=== PATIENT | female | born 1985 | race American Indian/Alaskan Native ===

== ENCOUNTER 2017-05-10 16:31 | Emergency (ER) | payer MEDICAID ==
[2017-05-10] MEDS ORDERED: TORADOL IM ONE (22:49)
[2017-05-10] MEDS ORDERED: TYLENOL PO ONE (22:51)
[2017-05-10] MEDS ORDERED: BOOSTRIX IM ONE (22:52)
[2017-05-10] MEDS ORDERED: MARCAINE-EPI/PF 0.5%-1:200,000 INFILTRATI ONE (22:55)
--- NOTE | 2017-05-10 22:55 | Emergency Department Report ---
- General Chief complaint: Skin/Abscess/Foreign Body Stated complaint: ABCESS Time Seen by Provider: 05/10/17 22:25 Source: patient Mode of arrival: Ambulatory Limitations: No Limitations - History of Present Illness Initial comments: This is a 31-year-old female nontoxic, well nourished in appearance, no acute signs of distress presented ED complaining of right-sided perinuem boil x4 days. Patient states pain is a 10 out of 10 that is described as sharp. Patient denies any pus or drainage. Denies vaginal discharge, fever, chills, headache, stiff neck, nausea, vomiting, pus or drainage. Patient denies any allergies or past medical history. Patient states she is not up-to-date with tetanus. MD complaint: abscess/boil -: Gradual, days(s) (3) Tetanus Up to Date: no Location: buttocks (right sided perineum) Severity: moderate Severity scale (0 -10): 10 Quality: sharp Consistency: constant Improves with: none Worsens with: none Associated symptoms: denies other symptoms Treatments Prior to Arrival: none - Related Data Previous Rx's Medication Instructions Recorded Last Taken Type Acetaminophen/Codeine 1 tab PO Q6H PRN #14 tab 11/16/14 Unknown Rx [Acetaminophen-Codeine #3 TAB] Sulfamethoxazole/Trimethoprim 1 each PO BID #14 tablet 11/16/14 Unknown Rx [Bactrim Ds] Clindamycin [Clindamycin CAP] 450 mg PO Q8HR 7 Days 05/10/17 Unknown Rx Ibuprofen [Motrin 600 MG tab] 600 mg PO Q8H PRN #30 tablet 05/10/17 Unknown Rx traMADol [Ultram] 50 mg PO Q4HR PRN #12 tablet 05/10/17 Unknown Rx Allergies Allergy/AdvReac Type Severity Reaction Status Date / Time No Known Allergies Allergy Verified 11/16/14 20:51 Abscess Boil HPI - HPI Chief Complaint: Skin/Abscess/Foreign Body Stated Complaint: ABCESS Time Seen by Provider: 05/10/17 22:25 Home Medications: Previous Rx's Medication Instructions Recorded Last Taken Type Acetaminophen/Codeine 1 tab PO Q6H PRN #14 tab 11/16/14 Unknown Rx [Acetaminophen-Codeine #3 TAB] Sulfamethoxazole/Trimethoprim 1 each PO BID #14 tablet 11/16/14 Unknown Rx [Bactrim Ds] Clindamycin [Clindamycin CAP] 450 mg PO Q8HR 7 Days 05/10/17 Unknown Rx Ibuprofen [Motrin 600 MG tab] 600 mg PO Q8H PRN #30 tablet 05/10/17 Unknown Rx traMADol [Ultram] 50 mg PO Q4HR PRN #12 tablet 05/10/17 Unknown Rx Allergies/Adverse Reactions: Allergies Allergy/AdvReac Type Severity Reaction Status Date / Time No Known Allergies Allergy Verified 11/16/14 20:51 ED Review of Systems ROS: Stated complaint: ABCESS Other details as noted in HPI Constitutional: denies: chills, fever Eyes: denies: eye pain, eye discharge, vision change ENT: denies: ear pain, throat pain Respiratory: denies: cough, shortness of breath, wheezing Cardiovascular: denies: chest pain, palpitations Endocrine: no symptoms reported Gastrointestinal: denies: abdominal pain, nausea, diarrhea Genitourinary: denies: urgency, dysuria, discharge Musculoskeletal: denies: back pain, joint swelling, arthralgia Skin: denies: rash, lesions Neurological: denies: headache, weakness, paresthesias Psychiatric: denies: anxiety, depression Hematological/Lymphatic: denies: easy bleeding, easy bruising ED Past Medical Hx - Past Medical History Previous Medical History?: Yes Hx Headaches / Migraines: Yes - Surgical History Past Surgical History?: Yes Additional Surgical History: x1 - Social History Smoking Status: Current Every Day Smoker Substance Use Type: Alcohol, Marijuana, Non Opiate Pain - Medications Home Medications: Home Medications Medication Instructions Recorded Confirmed Last Taken Type Acetaminophen/Codeine 1 tab PO Q6H PRN #14 tab 11/16/14 Unknown Rx [Acetaminophen-Codeine #3 TAB] Sulfamethoxazole/Trimethoprim 1 each PO BID #14 tablet 11/16/14 Unknown Rx [Bactrim Ds] Clindamycin [Clindamycin CAP] 450 mg PO Q8HR 7 Days 05/10/17 Unknown Rx Ibuprofen [Motrin 600 MG tab] 600 mg PO Q8H PRN #30 tablet 05/10/17 Unknown Rx traMADol [Ultram] 50 mg PO Q4HR PRN #12 tablet 05/10/17 Unknown Rx ED Physical Exam - General Limitations: No Limitations General appearance: alert, in no apparent distress - Head Head exam: Present: atraumatic, normocephalic, normal inspection - Eye Eye exam: Present: normal appearance, PERRL, EOMI. Absent: scleral icterus, conjunctival injection, nystagmus, periorbital swelling, periorbital tenderness Pupils: Present: normal accommodation - ENT ENT exam: Present: normal exam, normal orophraynx, mucous membranes moist, TM's normal bilaterally, normal external ear exam - Neck Neck exam: Present: normal inspection, full ROM. Absent: tenderness, meningismus, lymphadenopathy, thyromegaly - Respiratory Respiratory exam: Present: normal lung sounds bilaterally. Absent: respiratory distress, wheezes, rales, rhonchi, stridor, chest wall tenderness, accessory muscle use, decreased breath sounds, prolonged expiratory - Cardiovascular Cardiovascular Exam: Present: regular rate, normal rhythm. Absent: systolic murmur, diastolic murmur, rubs, gallop - GI/Abdominal GI/Abdominal exam: Present: soft, normal bowel sounds - Rectal Rectal exam: Present: deferred, normal rectal tone, other (residential support worker present during exam. There is an abscess to right perineum region. No pus or drainage. Positive fluctance present. Tender to touch. ). Absent: decreased rectal tone, hemorrhoids, mass - Extremities Exam Extremities exam: Present: normal inspection, full ROM, normal capillary refill. Absent: tenderness, pedal edema, joint swelling, calf tenderness - Back Exam Back exam: Present: normal inspection, full ROM. Absent: tenderness, CVA tenderness (R), CVA tenderness (L), muscle spasm, paraspinal tenderness, vertebral tenderness, rash noted - Neurological Exam Neurological exam: Present: alert, oriented X3, CN II-XII intact, normal gait, reflexes normal - Psychiatric Psychiatric exam: Present: normal affect, normal mood - Skin Skin exam: Present: warm, dry, intact, normal color. Absent: rash ED Course Vital Signs 05/10/17 17:54 Temperature 99.7 F H Pulse Rate 95 H Respiratory 20 Rate Blood Pressure 118/73 O2 Sat by Pulse 100 Oximetry - Reevaluation(s) Reevaluation #1: 05/10/17 22:58 Patient is able speak full sentence with no signs of distress. - I & D Right Buttocks Type of Procedure: Complex Site: right perineum Blade Size: 11 I & D Procedure: betadine prep, sterile drapes applied, sterile dressing applied Progress: Under sterile field, I used Betadine to cleanse the area. I then used 0.5% Marcaine with 1-200,000 lidocaine with 25-gauge 5/8 needle to inject area for anesthetic purposes. Total volume injected 3 mL. I then used an 11 blade to make a 1 cm incision. About 4 mL's of purulent drainage has been noted. I then used a hemostat to break the abscess formation. I then used sterile 0.9% normal saline flush to flush the wound with total volume of 40 mL used. I then put a 1/4 iodoform packing to the incision. A sterile 4 x 4 with tape has been applied as dressing. Bleeding is under control. Patient tolerated the procedure well with no signs of distress noted. ED Medical Decision Making - Medical Decision Making ED course; this is a 31-year-old female that presents with a abscess to the right perineum Patient was examined myself. An incision and drainage has been performed and patient's daughter well with no signs of distress. A iodoform packing has been inserted and patient was instructed to return in 2 days for packing removal. Patient also received clindamycin at the time of discharge. Patient was instructed to follow up with her primary care doctor in 3-5 days or if symptoms such as fever, chills, headache, stiff neck, chest pain, shortness of breath, abdominal pain returns or emergency room as was possible. Critical care attestation.: If time is entered above; I have spent that time in minutes in the direct care of this critically ill patient, excluding procedure time. ED Disposition Clinical Impression: Abscess Disposition: DC-01 TO HOME OR SELFCARE Is pt being admited?: No Does the pt Need Aspirin: No Condition: Stable Instructions: Abscess (ED), Abscess Incision and Drainage (ED), Clindamycin ( By mouth), Tramadol (By mouth) Additional Instructions: follow up with your primary care doctor in 3-5 days or if symptoms such as fever, chills, headache, stiff neck, chest pain, shortness of breath, abdominal pain returns or emergency room as was possible. Take Clindamycin as prescibed Take Ultram for pain as prescribed but do not operate any machinery while taking Ultra due to sedation/drowsiness Prescriptions: Clindamycin [Clindamycin CAP] 450 mg PO Q8HR 7 Days Ibuprofen [Motrin 600 MG tab] 600 mg PO Q8H PRN #30 tablet PRN Reason: Pain traMADol [Ultram] 50 mg PO Q4HR PRN #12 tablet PRN Reason: Pain Referrals: GISELE BARRIENTOS FNP [Primary Care Provider] - 3-5 Days [facility] [Outside] - 3-[address] [facility] [Outside] - 3-5 Days Forms: Work/School Release Form(ED)
[2017-05-11 00:24] VITALS: BP 99/67
== END 2017-05-11 00:23 | disposition home or self-care (01) ==
LOC: ED 16:31
DX: L02.31 Cutaneous abscess of buttock (principal); G43.909 Migraine, unspecified, not intractable, without status migrainosus; F17.200 Nicotine dependence, unspecified, uncomplicated
CPT/HCPCS: 10061; 90471; 90715; 96372; 99283; J1885

== ENCOUNTER 2018-03-22 18:28 | Emergency (ER) | payer MEDICAID ==
[2018-03-22] MEDS ORDERED: TESSALON PERLES PO ONE (19:45)
[2018-03-22] MEDS ORDERED: NACL 0.9% 1000 ML 1,000 ML IV ONE (19:46)
[2018-03-22] MEDS ORDERED: TYLENOL #3 PO ONE (19:47)
--- NOTE | 2018-03-22 19:52 | Emergency Department Report ---
HPI - General Chief Complaint: Chest Pain Time Seen by Provider: 03/22/18 19:06 - HPI HPI: The patient is 32-year-old female with a long history of daily tobacco use, whom presents for evaluation of cough and chest pain. The patient reports one week, nonproductive cough, exacerbated with smoking, associated with chest pain since 9 AM this morning, midsternal left-sided, worse with coughing, sharp in quality, moderate in severity. The patient denies fever, syncope, dyspnea, hemoptysis, unilateral leg swelling, oral contraceptive use, recent immobilization, history of DVT or PE, hx of recent cancer or immunosuppressive therapy. ED Past Medical Hx - Past Medical History Hx Headaches / Migraines: Yes - Surgical History Additional Surgical History: x1 - Social History Smoking Status: Current Every Day Smoker Substance Use Type: Alcohol, Marijuana, Non Opiate Pain - Medications Home Medications: Home Medications Medication Instructions Recorded Confirmed Last Taken Type Acetaminophen/Codeine 1 tab PO Q6H PRN #14 tab 11/16/14 Unknown Rx [Acetaminophen-Codeine #3 TAB] Sulfamethoxazole/Trimethoprim 1 each PO BID #14 tablet 11/16/14 Unknown Rx [Bactrim Ds] Clindamycin [Clindamycin CAP] 450 mg PO Q8HR 7 Days capsule 05/10/17 Unknown Rx Ibuprofen [Motrin 600 MG tab] 600 mg PO Q8H PRN #30 tablet 05/10/17 Unknown Rx traMADol [Ultram] 50 mg PO Q4HR PRN #12 tablet 05/10/17 Unknown Rx ALBUTEROL Inhaler [ProAir HFA 2 puff IH QID PRN #1 inhalation 03/22/18 Unknown Rx Inhaler] Azithromycin [Zithromax Z-BRANNON] 250 mg PO QDAY #6 tablet 03/22/18 Unknown Rx Benzonatate [Tessalon Perles] 100 mg PO Q8HR #20 capsule 03/22/18 Unknown Rx traMADol [Ultram 50 MG tab] 50 mg PO Q6HR PRN #12 tablet 03/22/18 Unknown Rx ED Review of Systems ROS: Stated complaint: CHEST PAIN Other details as noted in HPI Constitutional: denies: fever ENT: denies: throat or neck pain Respiratory: reports cough denies shortness of breath Cardiovascular: reports chest pain Endocrine: denies unexplained weight loss or gain Gastrointestinal: denies: abdominal pain, nausea Genitourinary: denies: dysuria Musculoskeletal: denies: leg swelling Skin: denies: rash Neurological: denies: headache Hematological/Lymphatic: denies: easy bleeding or easy bruising Psych: denies sadness or hopelessness Physical Exam - Physical Exam Vital Signs: Vital Signs 03/22/18 18:47 Temperature 99.1 F Pulse Rate 95 H Respiratory 22 Rate Blood Pressure 142/82 O2 Sat by Pulse 100 Oximetry Physical Exam: General: well-nourished, well-developed, no acute distress Head: Normocephalic, atraumatic Eyes: normal sclera ENT: Mucous membranes are pale and dry Neck: trachea midline, neck supple, No neck stiffness, no cervical adenopathy Respiratory: Breath sounds equal bilaterally, no wheezing, rales, or rhonchi Cardio: S1 and S2 present, no murmurs, rubs, gallops, capillary refill is delayed Abdomen: Normoactive bowel sounds, soft abdomen, no tenderness Chest WALL/Back: midsternal and left lateral ICS 4-6 tenderness to palpation of the chest wall present, no paradoxical movement, no swelling, ecchymosis, redness, fluctuance, or crepitus of the chest wall, no CVA tenderness with percussion Musc: No pitting edema Skin: No rash Neuro: no facial drooping, normal speech Psych: Normal affect ED Course Vital Signs 03/22/18 18:47 Temperature 99.1 F Pulse Rate 95 H Respiratory 22 Rate Blood Pressure 142/82 O2 Sat by Pulse 100 Oximetry ED Medical Decision Making - Lab Data Result diagrams: 03/22/18 20:03 03/22/18 20:03 - Medical Decision Making The patient was seen and examined by myself. The patient is placed on a monitor technician and continuous pulse ox. On initial evaluation, the patient was found to be in no distress. EKG was negative for findings suggestive of acute cardiac infarct. Labs and imaging are obtained. The patient is given cough medicine, pain medicine, and IV normal saline fluid bolus for treatment of her dehydration. Chest x-ray is negative for pneumothorax, focal consolidation, pulmonary vascular congestion, pleural effusion, or other obvious acute cardiopulmonary disease process. Lab results were non-concerning including levels of troponin, WBC, hemoglobin, hematocrit, electrolytes, renal function. The patient was reevaluated and reported that their symptoms were markedly improved. As the patient has a KARMEN risk score less than 2, and a well's score less than 2, the patient is at low risk of ACS or pulmonary emboli etiology of their symptoms. The patient is stable for discharge with outpatient follow-up. The patient is given follow-up and return instructions. The patient expressed understanding and agreed with the plan. The patient is discharged in stable condition. Critical care attestation.: If time is entered above; I have spent that time in minutes in the direct care of this critically ill patient, excluding procedure time. ED Disposition Clinical Impression: Acute chest pain, Chest wall pain, Dehydration Acute bronchitis Qualifiers: Bronchitis organism: unspecified organism Qualified Code(s): J20.9 - Acute bronchitis, unspecified Disposition: DC- TO HOME OR SELFCARE Is pt being admited?: No Does the pt Need Aspirin: No Condition: Stable Instructions: Chest Pain (ED), Acute Bronchitis (ED), Costochondritis (ED) Referrals: PRIMARY CARE, [Primary Care Provider] - 3-5 Days [facility] [Outside] - 3-5 Days Time of Disposition: 19:52
[2018-03-22 20:25] LABS: Basophils % (Auto) 0.6 % (0.0-1.8); Eosinophils % (Auto) 0.5 % (0.0-4.3); Hematocrit 41.6 % (30.3-42.9); Hemoglobin 14.1 gm/dl (10.1-14.3); Lymphocytes # (Auto) 2.3 K/mm3 (1.2-5.4); Lymphocytes % (Auto) 38.3 % (13.4-35.0); Mean Corpuscular HGB Conc 34 % (30-34); Mean Corpuscular Hemoglobin 32 pg (28-32); Mean Corpuscular Volume 94 fl (79-97); Monocytes # (Auto) 0.4 K/mm3 (0.0-0.8); Monocytes % (Auto) 6.7 % (0.0-7.3); Platelet Count 287 K/mm3 (140-440); Red Blood Count 4.43 M/mm3 (3.65-5.03); Red Cell Distribution Width 14.2 % (13.2-15.2)
[2018-03-22 20:30] LABS: BUN/Creatinine Ratio 11; Blood Urea Nitrogen 8 mg/dL (7-17); Calcium 9.5 mg/dL (8.4-10.2); Hemolysis Index 11
--- NOTE | 2018-03-22 20:56 | XRay Report ---
FINAL REPORT PROCEDURE: XR CHEST 1V AP TECHNIQUE: Chest radiograph anteroposterior view. CPT 39396 HISTORY: chest pain COMPARISON: No prior studies are available for comparison. FINDINGS: Heart: Normal. Mediastinum/Vessels: Normal. Lungs/Pleural space: Lungs are expanded. There are no infiltrates, effusions or pneumothoraces.. Bony thorax: No acute osseous abnormality. Life support devices: None. IMPRESSION: No acute cardiopulmonary abnormality.
[2018-03-22] MEDS ORDERED: TORADOL ONE (23:22)
[2018-03-22] MEDS ORDERED: TORADOL IV ONE (23:23)
[2018-03-23 01:26] VITALS: BP 99/54
== END 2018-03-23 01:34 | disposition home or self-care (01) ==
LOC: ED 18:28
DX: E86.0 Dehydration (principal); J20.9 Acute bronchitis, unspecified; R07.89 Other chest pain; G43.909 Migraine, unspecified, not intractable, without status migrainosus; F17.200 Nicotine dependence, unspecified, uncomplicated; F12.90 Cannabis use, unspecified, uncomplicated
CPT/HCPCS: 36415; 71045; 80048; 83880; 84484; 84703; 85025; 93005; 93010; 96361; 96374; 99284; J1885; J7030

== ENCOUNTER 2018-12-24 19:45 | Emergency (ER) | payer MEDICAID ==
[2018-12-24] MEDS ORDERED: NACL 0.9% 1000 ML 1,000 ML IV ONE (20:15)
[2018-12-24 20:59] LABS: Basophils % (Auto) 0.4 % (0.0-1.8); Eosinophils % (Auto) 0.5 % (0.0-4.3); Hematocrit 42.9 % (30.3-42.9); Hemoglobin 14.5 gm/dl (10.1-14.3); Lymphocytes # (Auto) 1.5 K/mm3 (1.2-5.4); Lymphocytes % (Auto) 18.6 % (13.4-35.0); Mean Corpuscular HGB Conc 34 % (30-34); Mean Corpuscular Volume 96 fl (79-97); Monocytes # (Auto) 0.5 K/mm3 (0.0-0.8); Monocytes % (Auto) 6.4 % (0.0-7.3); Platelet Count 296 K/mm3 (140-440); Red Blood Count 4.48 M/mm3 (3.65-5.03); Red Cell Distribution Width 13.4 % (13.2-15.2)
[2018-12-24 21:12] LABS: Alanine Aminotransferase 16 units/L (7-56); Albumin 4.9 g/dL (3.9-5); BUN/Creatinine Ratio 17; Blood Urea Nitrogen 12 mg/dL (7-17); Calcium 9.4 mg/dL (8.4-10.2); Hemolysis Index 18
[2018-12-24 21:19] LABS: Bacteria,Urine 1+ /HPF (Negative); Bilirubin,Urine NEG (Negative); Blood,Urine NEG (Negative); Color,Urine Amber (Yellow); Mucus,Urine 3+ /HPF
[2018-12-24] MEDS ORDERED: TORADOL IV ONE (23:20)
[2018-12-24] MEDS ORDERED: ZOFRAN IV ONE (23:20)
[2018-12-24] MEDS ORDERED: ATIVAN IV STA (23:22)
--- NOTE | 2018-12-24 23:28 | Emergency Department Report ---
ED Abdominal Pain HPI - General Chief Complaint: Abdominal Pain Stated Complaint: ABDOMINAL PAIN Time Seen by Provider: 12/24/18 23:08 Source: patient, EMS Mode of arrival: Wheelchair Limitations: No Limitations - History of Present Illness Initial Comments: Ms. Rivera is a 33 yo female with hx of "stomach problems" for several years. She has been in and out of several hospitals over the last 4 days for abdominal pain, nausea and vomiting. Has not been evaluated for these recurrent symptoms. She does smoke marijuana daily. Drinks alcohol on the weekends. Currently taking Zofran and rectal suppositories prescribed recently. Still unable to keep food or liquid down. MD Complaint: abdominal pain -: Gradual, days(s) (5) Location: diffuse Migration to: no migration Severity scale (0 -10): 8 Quality: cramping Consistency: constant Worsens With: eating, other (certain food) Associated Symptoms: nausea, vomiting - Related Data Previous Rx's Medication Instructions Recorded Last Taken Type Acetaminophen/Codeine 1 tab PO Q6H PRN #14 tab 11/16/14 Unknown Rx [Acetaminophen-Codeine #3 TAB] Sulfamethoxazole/Trimethoprim 1 each PO BID #14 tablet 11/16/14 Unknown Rx [Bactrim Ds] Clindamycin [Clindamycin CAP] 450 mg PO Q8HR 7 Days capsule 05/10/17 Unknown Rx Ibuprofen [Motrin 600 MG tab] 600 mg PO Q8H PRN #30 tablet 05/10/17 Unknown Rx traMADol [Ultram] 50 mg PO Q4HR PRN #12 tablet 05/10/17 Unknown Rx ALBUTEROL Inhaler (OR & NICU) 2 puff IH QID PRN #1 inhalation 03/22/18 Unknown Rx [ProAir HFA Inhaler] Azithromycin [Zithromax Z-BRANNON] 250 mg PO QDAY #6 tablet 03/22/18 Unknown Rx Benzonatate [Tessalon Perles] 100 mg PO Q8HR #20 capsule 03/22/18 Unknown Rx traMADol [Ultram 50 MG tab] 50 mg PO Q6HR PRN #12 tablet 03/22/18 Unknown Rx Ibuprofen [Motrin] 800 mg PO Q8HR #30 tablet 08/09/18 Unknown Rx Allergies Allergy/AdvReac Type Severity Reaction Status Date / Time No Known Allergies Allergy Verified 11/16/14 20:51 ED Review of Systems ROS: Stated complaint: ABDOMINAL PAIN Other details as noted in HPI Comment: All other systems reviewed and negative Constitutional: denies: fever Respiratory: denies: cough Cardiovascular: denies: chest pain Gastrointestinal: abdominal pain, nausea, vomiting, constipation. denies: diar dena ED Past Medical Hx - Past Medical History Previous Medical History?: Yes Hx Headaches / Migraines: Yes - Surgical History Past Surgical History?: Yes Additional Surgical History: x1 - Social History Smoking Status: Current Every Day Smoker Substance Use Type: Marijuana (every day), Tranquilizers - Medications Home Medications: Home Medications Medication Instructions Recorded Confirmed Last Taken Type Acetaminophen/Codeine 1 tab PO Q6H PRN #14 tab 11/16/14 Unknown Rx [Acetaminophen-Codeine #3 TAB] Sulfamethoxazole/Trimethoprim 1 each PO BID #14 tablet 11/16/14 Unknown Rx [Bactrim Ds] Clindamycin [Clindamycin CAP] 450 mg PO Q8HR 7 Days capsule 05/10/17 Unknown Rx Ibuprofen [Motrin 600 MG tab] 600 mg PO Q8H PRN #30 tablet 05/10/17 Unknown Rx traMADol [Ultram] 50 mg PO Q4HR PRN #12 tablet 05/10/17 Unknown Rx ALBUTEROL Inhaler (OR & NICU) 2 puff IH QID PRN #1 inhalation 03/22/18 Unknown Rx [ProAir HFA Inhaler] Azithromycin [Zithromax Z-BRANNON] 250 mg PO QDAY #6 tablet 03/22/18 Unknown Rx Benzonatate [Tessalon Perles] 100 mg PO Q8HR #20 capsule 03/22/18 Unknown Rx traMADol [Ultram 50 MG tab] 50 mg PO Q6HR PRN #12 tablet 03/22/18 Unknown Rx Ibuprofen [Motrin] 800 mg PO Q8HR #30 tablet 08/09/18 Unknown Rx ED Physical Exam - General Limitations: No Limitations General appearance: alert, in no apparent distress - Head Head exam: Present: atraumatic, normocephalic - Eye Eye exam: Present: normal appearance - ENT ENT exam: Present: mucous membranes moist - Neck Neck exam: Present: normal inspection, full ROM. Absent: tenderness, meningismus - Respiratory Respiratory exam: Present: normal lung sounds bilaterally. Absent: respiratory distress, wheezes, rales, rhonchi - Cardiovascular Cardiovascular Exam: Present: regular rate, normal rhythm, normal heart sounds. Absent: systolic murmur, diastolic murmur, rubs, gallop - GI/Abdominal GI/Abdominal exam: Present: soft, normal bowel sounds. Absent: distended, tenderness, guarding, rebound - Extremities Exam Extremities exam: Present: normal inspection - Back Exam Back exam: Present: normal inspection - Neurological Exam Neurological exam: Present: alert, oriented X3 - Psychiatric Psychiatric exam: Present: normal affect, normal mood - Skin Skin exam: Present: warm, dry, intact, normal color. Absent: rash ED Course Vital Signs 12/24/18 19:55 Temperature 98.3 F Pulse Rate 61 Respiratory 18 Rate Blood Pressure 115/78 O2 Sat by Pulse 100 Oximetry ED Medical Decision Making - Lab Data Result diagrams: 12/24/18 20:26 12/24/18 20:26 Laboratory Results - last 24 hr 12/24/18 12/24/18 12/24/18 20:26 20:26 20:26 WBC 7.8 RBC 4.48 Hgb 14.5 H Hct 42.9 MCV 96 MCH 32 MCHC 34 RDW 13.4 Plt Count 296 Lymph % (Auto) 18.6 [place] % (Auto) 6.4 Eos % (Auto) 0.5 Baso % (Auto) 0.4 Lymph # 1.5 [place] # 0.5 Eos # 0.0 Baso # 0.0 Seg Neutrophils % 74.1 H Seg Neutrophils # 5.8 Sodium 142 Potassium 3.3 L Chloride 101.6 Carbon Dioxide 24 Anion Gap 20 BUN 12 Creatinine 0.7 Estimated GFR > 60 BUN/Creatinine Ratio 17 Glucose 105 H Calcium 9.4 Total Bilirubin 1.00 AST 17 ALT 16 Alkaline Phosphatase 52 Total Protein 8.0 Albumin 4.9 Albumin/Globulin Ratio 1.6 Lipase 137 H HCG, Qual Negative Urine Color Urine Turbidity Urine pH Ur Specific [place] Urine Protein Urine Glucose (UA) Urine Ketones Urine Blood Urine Nitrite Urine Bilirubin Urine Urobilinogen Ur Leukocyte Esterase Urine WBC (Auto) Urine RBC (Auto) U Epithel Cells (Auto) Urine Bacteria (Auto) Urine Mucus 12/24/18 20:53 WBC RBC Hgb Hct MCV MCH MCHC RDW Plt Count Lymph % (Auto) [place] % (Auto) Eos % (Auto) Baso % (Auto) Lymph # [place] # Eos # Baso # Seg Neutrophils % Seg Neutrophils # Sodium Potassium Chloride Carbon Dioxide Anion Gap BUN Creatinine Estimated GFR BUN/Creatinine Ratio Glucose Calcium Total Bilirubin AST ALT Alkaline Phosphatase Total Protein Albumin Albumin/Globulin Ratio Lipase HCG, Qual Urine Color [place] Urine Turbidity Slightly-cloudy Urine pH 5.0 Ur Specific [place] 1.034 H Urine Protein 100 mg/dl Urine Glucose (UA) Neg Urine Ketones 80 Urine Blood Neg Urine Nitrite Neg Urine Bilirubin Neg Urine Urobilinogen 4.0 Ur Leukocyte Esterase Lg Urine WBC (Auto) 31.0 H Urine RBC (Auto) 12.0 U Epithel Cells (Auto) 18.0 H Urine Bacteria (Auto) 1+ Urine Mucus 3+ - Medical Decision Making Ms. Rivera presents with recurrent abdominal pain, nausea, vomiting. Clinical impression: cannabis hyperemesis syndrome, dehydration hypokalemia Labs notable for contaminated UA, ketonuria, mild hypokalemia, normal WBC IVF, zofran, lorazepam, ketorolac administered in ED dc'd home Strongly recommended complete cessation of marijuana use. REferred to GI specialist and outside clinic Critical care attestation.: If time is entered above; I have spent that time in minutes in the direct care of this critically ill patient, excluding procedure time. ED Disposition Clinical Impression: Cannabinoid hyperemesis syndrome, IBS (irritable bowel syndrome) Disposition: DC-01 TO HOME OR SELFCARE Is pt being admited?: No Does the pt Need Aspirin: No Condition: Stable Instructions: Irritable Bowel Syndrome (ED) Referrals: [facility] [Outside] - 3-5 Days CELINA SURESH MD [Staff Physician] - 3-5 Days
[2018-12-25 02:17] VITALS: BP 133/80
== END 2018-12-25 03:19 | disposition home or self-care (01) ==
LOC: ED 19:45
DX: K58.9 Irritable bowel syndrome, unspecified (principal); F12.188 Cannabis abuse with other cannabis-induced disorder; G43.909 Migraine, unspecified, not intractable, without status migrainosus; F17.200 Nicotine dependence, unspecified, uncomplicated; F15.10 Other stimulant abuse, uncomplicated; Z79.899 Other long term (current) drug therapy
CPT/HCPCS: 36415; 80053; 81001; 83690; 84703; 85025; 96361; 96374; 96375; 99284; J1885; J2060; J2405; J7030

== ENCOUNTER 2019-04-25 09:37 | Emergency (ER) | payer OTHER, MEDICAID ==
[2019-04-25 09:57] VITALS: BP 107/68
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
== END 2019-04-25 11:35 | disposition home or self-care (01) ==
LOC: ED 09:37
DX: M54.2 Cervicalgia (principal); V49.49XA Driver injured in collision with other motor vehicles in traffic accident, initial encounter; Y93.89 Activity, other specified; Y92.89 Other specified places as the place of occurrence of the external cause; Y99.8 Other external cause status
CPT/HCPCS: 99282

== ENCOUNTER 2019-04-26 19:53 | Emergency (ER) | payer MEDICAID, OTHER ==
[2019-04-26] MEDS ORDERED: ALUM-MAG HYDROX-SIMETH 200-200-20MG/5ML PO ONE (20:31)
[2019-04-26] MEDS ORDERED: LIDOCAINE VISCOUS 2% PO ONE (20:31)
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
[2019-04-26 20:32] VITALS: BP 98/62
[2019-04-26 20:51] LABS: Basophils % (Auto) 0.5 % (0.0-1.8); Eosinophils % (Auto) 0.6 % (0.0-4.3); Hematocrit 40.3 % (30.3-42.9); Hemoglobin 13.8 gm/dl (10.1-14.3); Lymphocytes % (Auto) 38.2 % (13.4-35.0); Mean Corpuscular HGB Conc 34 % (30-34); Mean Corpuscular Volume 95 fl (79-97); Monocytes # (Auto) 0.4 K/mm3 (0.0-0.8); Monocytes % (Auto) 4.4 % (0.0-7.3); Platelet Count 323 K/mm3 (140-440); Red Blood Count 4.25 M/mm3 (3.65-5.03); Red Cell Distribution Width 14.8 % (13.2-15.2)
[2019-04-26 21:15] LABS: Alanine Aminotransferase 14 units/L (7-56)
[2019-04-26 21:28] LABS: Bilirubin,Direct < 0.2 mg/dL (0-0.2)
== END 2019-04-27 00:20 | disposition left against medical advice (07) ==
LOC: ED 19:53
DX: R07.89 Other chest pain (principal); Z53.21 Procedure and treatment not carried out due to patient leaving prior to being seen by health care provider
CPT/HCPCS: 36415; 80076; 82150; 83690; 85025; 93005; 93010; G0480; 80320

== ENCOUNTER 2019-12-06 05:04 | Emergency (ER) | payer MEDICAID, OTHER ==
[2019-12-06] MEDS ORDERED: ACETAMINOPHEN 325 MG TAB PO ONE (05:15)
[2019-12-06] MEDS ORDERED: ACETAMINOPHEN 325 MG TAB ONE (05:19)
[2019-12-06 05:44] LABS: Hematocrit 37.6 % (30.3-42.9); Hemoglobin 12.8 gm/dl (10.1-14.3); Mean Corpuscular HGB Conc 34 % (30-34); Mean Corpuscular Volume 94 fl (79-97); Platelet Count 276 K/mm3 (140-440); Red Blood Count 3.98 M/mm3 (3.65-5.03); Red Cell Distribution Width 14.4 % (13.2-15.2)
--- NOTE | 2019-12-06 06:42 | Ultrasound Report ---
US pelvic complete, US transvaginal INDICATION / CLINICAL INFORMATION: post bleeding and pain. COMPARISON: None available. FINDINGS: Transabdominal and transvaginal imaging was performed. The uterus measures 9.9 x 5.2 x 6.4 cm. Endometrium is heterogeneous and thickened at 3 cm. Ovaries are unremarkable. Incidental physiologic bilateral ovarian cysts are noted. There is flow to both ovaries. No free fluid. IMPRESSION: 1. Endometrium is thickened measuring 3 cm. There is no abnormal flow in the endometrium to suggest r etained products. Signer Name: Evangelista Bettencourt MD Signed: 12/06/2019 6:38 AM Workstation Name: [id number]
[2019-12-06 06:47] LABS: Bacteria,Urine 1+ /HPF (Negative); Mucus,Urine FEW /HPF
[2019-12-06 06:48] LABS: Bilirubin,Urine NEG (Negative); Blood,Urine LG (Negative); Color,Urine Yellow (Yellow); Protein,Urine <15 mg/dL mg/dL (Negative); Urobilinogen,Urine < 2.0 mg/dL (<2.0)
[2019-12-06] MEDS ORDERED: SODIUM CHLORIDE 0.9% 1000 ML 1,000 ML IV ONE (07:47)
[2019-12-06] MEDS ORDERED: ONDANSETRON 4 MG/2 ML INJ IV ONE (07:47)
[2019-12-06] MEDS ORDERED: HYDROmorphone 1 MG/1 ML INJ IV ONE (07:47)
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
[2019-12-06 08:45] LABS: BUN/Creatinine Ratio 12; Blood Urea Nitrogen 7 mg/dL (7-17); Calcium 9.3 mg/dL (8.4-10.2); Hemolysis Index 23
--- NOTE | 2019-12-06 10:10 | Cat Scan Report ---
CT abdomen pelvis w con INDICATION: Abdominal pain. TECHNIQUE: All CT scans at this location are performed using the following dose modulation technique: Automated exposure control. Helical slices were obtained through the abdomen and pelvis. 100 cc of Omnipaque 30 0 is administered. COMPARISON: Ultrasound performed on 12/06/19 FINDINGS: Abdomen: No acute abnormalities in the lower chest. Liver, spleen, pancreas, adrenal glands, and kidn eys show no acute abnormality. The aorta is normal in diameter. There is no adenopathy. There is no o bstruction, inflammation, or free air. There are no abnormal collections. Pelvis: There is no obstruction, inflammation, or free air. There are no abnormal fluid collections. There is a small amount of free fluid in the pelvis. There is a 12 mm cyst in the left ovary, charact eristic of physiologic cyst. There is thickening of the endometrium. There is fluid and soft tissue density in the endometrium. Th is was noted on the patient's ultrasound performed earlier today. This could represent prominent clot within the endometrial cavity. This could represent a large polyp. It is possible this could represe nt a mass or fibroid extending into the endometrial cavity.. On review of bone windows, no acute osseous abnormalities are seen. IMPRESSION: 1. There is thickening of the endometrium. There is a soft tissue density structure which measures ap proximately 3.5 cm this could represent a clot within the endometrial cavity. This could represent a polyp or mass including fibroid. There is a small amount of free fluid in the dependent portion of the pelvis. There is no bowel obstruction, inflammation, or free air. There are no abnormal fluid collections. Signer Name: Aniket Mancini MD Signed: 12/06/2019 10:05 AM Workstation Name: [id number]
[2019-12-06 11:05] VITALS: BP 100/61
== END 2019-12-06 11:30 | disposition home or self-care (01) ==
LOC: ED 05:04
DX: O34.81 Maternal care for other abnormalities of pelvic organs, first trimester (principal); O20.9 Hemorrhage in early pregnancy, unspecified; O99.331 Smoking (tobacco) complicating pregnancy, first trimester; O26.891 Other specified pregnancy related conditions, first trimester; N83.209 Unspecified ovarian cyst, unspecified side; G43.909 Migraine, unspecified, not intractable, without status migrainosus; Z3A.01 Less than 8 weeks gestation of pregnancy; Z79.899 Other long term (current) drug therapy
CPT/HCPCS: 36415; 74177; 76830; 76856; 80048; 81001; 84702; 85027; 86900; 86901; 96365; 96375; 99285; J1170; J2405; J7030; Q9967

== ENCOUNTER 2020-02-16 17:52 | Emergency (ER) | payer MEDICAID ==
[2020-02-16 18:27] VITALS: BP 145/86
[2020-02-16] MEDS ORDERED: diphenhydrAMINE 50 MG/ML VIAL IV ONE (20:14)
[2020-02-16] MEDS ORDERED: BUTALB/ACETAMINOPHEN/CAFFEINE TAB PO ONE (20:14)
[2020-02-16] MEDS ORDERED: KETOROLAC 30 MG/1 ML INJ IV ONE (20:14)
[2020-02-16] MEDS ORDERED: METOCLOPRAMIDE 10 MG/2 ML INJ IV ONE (20:14)
--- NOTE | 2020-02-16 21:17 | Cat Scan Report ---
CT HEAD WITHOUT CONTRAST INDICATION / CLINICAL INFORMATION: Headache. TECHNIQUE: All CT scans at this location are performed using CT dose reduction for ALARA by means of automated e xposure control. COMPARISON: None available. FINDINGS: HEMORRHAGE: No evidence of intracranial hemorrhage or extra-axial fluid collection. EXTRA-AXIAL SPACES: Cortical sulci, sylvian fissures and basilar cisterns have an unremarkable appear ance. VENTRICULAR SYSTEM: The ventricular system is of normal size and configuration. CEREBRAL PARENCHYMA: No areas of abnormal brain parenchymal attenuation are identified. There is no i ndication of recent infarction. MIDLINE SHIFT OR HERNIATION: There is no mass effect. CEREBELLUM / BRAINSTEM: Brainstem and cerebellum have an unremarkable appearance. INTRACRANIAL VESSELS:No abnormalities are identified on this noncontrast head CT. ORBITS: visualized portions of the orbits have an unremarkable appearance. SOFT TISSUES of HEAD: No significant abnormality. CALVARIUM: Evaluation of bone windows reveals no abnormalities. PARANASAL SINUSES / MASTOID AIR CELLS: Paranasal sinuses are free from inflammatory mucosal disease. Mastoid air cells are normally pneumatized. ADDITIONAL FINDINGS: None. IMPRESSION: 1. No intracranial abnormality on head CT without contrast.. Signer Name: Jacques Millan MD Signed: 02/16/2020 9:13 PM Workstation Name: [id number]
--- NOTE | 2020-02-16 22:05 | Emergency Department Report ---
ED Headache HPI - General Chief Complaint: Headache Stated Complaint: HEADACHE/NAUSEA - History of Present Illness Initial Comments: Patient is a 34-year-old -[place] female with a history of migraine headaches who presents to the ED with complaint of acute onset persistent severe left retro-orbital and frontal headache for the last 4 days. Patient states that she has also had nausea and vomiting intermittently with photophobia on the left eye for the last 2 days. Patient states that the symptoms are typical of her chronic migraine headaches although she has not had headache for over 6 months. Patient states that she has been taking [id number] medications with no relief. Patient denies chest pain, shortness of breath, neck pain, change in vision, dizziness, lightheadedness, sore throat, nasal and sinus congestion, fall, traumatic injury or abdominal pain and diarrhea. Timing/Duration: 1 week, waxing and waning Quality: severe, pressure, sharp, throbbing Head Injury Location: frontal (Left frontal and retro- orbital) Recent Head Trauma: no recent headache/trauma Modifying Factors: improves with: medication Associated Symptoms: denies symptoms, nausea/vomiting. denies: confusion, fatigue, facial pain, fever/chills, flushing, loss of consciousness, nasal congestion, nasal drainage, numbness in legs/feet, seizures, sinus infection, stiff neck, vision changes, weakness Allergies/Adverse Reactions: Allergies No Known Allergies Allergy (Verified 02/16/20 18:28) Home Medications: Ambulatory Orders Acetaminophen/Codeine [Acetaminophen-Codeine #3 TAB] 1 tab PO Q6H PRN #14 tab 11/16/14 Sulfamethoxazole/Trimethoprim [Bactrim Ds] 1 each PO BID #14 tablet 11/16/14 Clindamycin [Clindamycin CAP] 450 mg PO Q8HR 7 Days capsule 05/10/17 Ibuprofen [Motrin 600 MG tab] 600 mg PO Q8H PRN #30 tablet 05/10/17 traMADoL [Ultram] 50 mg PO Q4HR PRN #12 tablet 05/10/17 Albuterol INH(or & Nicu Only) [ProAir HFA Inhaler] 2 puff IH QID PRN #1 inhalation 03/22/18 Azithromycin [Zithromax Z-BRANNON] 250 mg PO QDAY #6 tablet 03/22/18 Benzonatate [Tessalon Perles] 100 mg PO Q8HR #20 capsule 03/22/18 traMADoL [Ultram 50 MG tab] 50 mg PO Q6HR PRN #12 tablet 03/22/18 Cyclobenzaprine [Flexeril] 10 mg PO QHS #20 tablet 04/25/19 Ibuprofen [Motrin 800 MG tab] 800 mg PO Q8HR #30 tablet 04/25/19 Butalb/Acetamin/Caff 50-325-40 [Fioricet 50-325-40] 1 - 2 tab PO Q6HR PRN #15 tab 02/16/20 Cyclobenzaprine HCl [Flexeril 5 MG TAB] 5 mg PO Q8H PRN #15 tab 02/16/20 Ketorolac [Toradol] 10 mg PO Q8H PRN #20 tablet 02/16/20 Ondansetron [Zofran Odt] 4 mg PO Q6HR PRN #20 tab.rapdis 02/16/20 ED Review of Systems ROS: Stated complaint: HEADACHE/NAUSEA Other details as noted in HPI Constitutional: denies: chills, fever Eyes: denies: eye pain, eye discharge, vision change ENT: denies: ear pain, throat pain Respiratory: denies: cough, shortness of breath, wheezing Cardiovascular: denies: chest pain, palpitations Endocrine: no symptoms reported Gastrointestinal: nausea, vomiting. denies: abdominal pain, diarrhea Genitourinary: denies: urgency, dysuria, discharge Musculoskeletal: denies: back pain, joint swelling, arthralgia Skin: denies: rash, lesions Neurological: headache. denies: weakness, paresthesias Psychiatric: denies: anxiety, depression Hematological/Lymphatic: denies: easy bleeding, easy bruising ED Past Medical Hx - Past Medical History Previous Medical History?: Yes Hx Headaches / Migraines: Yes Additional medical history: Pancreatitis- ovarian cyst - Surgical History Past Surgical History?: Yes Additional Surgical History: x1 - Social History Smoking Status: Current Every Day Smoker Substance Use Type: Alcohol, Marijuana - Medications Home Medications: Home Medications Medication Instructions Recorded Confirmed Last Taken Type Acetaminophen/Codeine 1 tab PO Q6H PRN #14 tab 11/16/14 Unknown Rx [Acetaminophen-Codeine #3 TAB] Sulfamethoxazole/Trimethoprim 1 each PO BID #14 tablet 11/16/14 Unknown Rx [Bactrim Ds] Clindamycin [Clindamycin CAP] 450 mg PO Q8HR 7 Days capsule 05/10/17 Unknown Rx Ibuprofen [Motrin 600 MG tab] 600 mg PO Q8H PRN #30 tablet 05/10/17 Unknown Rx traMADoL [Ultram] 50 mg PO Q4HR PRN #12 tablet 05/10/17 Unknown Rx Albuterol INH(or & Nicu Only) 2 puff IH QID PRN #1 inhalation 03/22/18 Unknown Rx [ProAir HFA Inhaler] Azithromycin [Zithromax Z-BRANNON] 250 mg PO QDAY #6 tablet 03/22/18 Unknown Rx Benzonatate [Tessalon Perles] 100 mg PO Q8HR #20 capsule 03/22/18 Unknown Rx traMADoL [Ultram 50 MG tab] 50 mg PO Q6HR PRN #12 tablet 03/22/18 Unknown Rx Cyclobenzaprine [Flexeril] 10 mg PO QHS #20 tablet 04/25/19 Unknown Rx Ibuprofen [Motrin 800 MG tab] 800 mg PO Q8HR #30 tablet 04/25/19 Unknown Rx Butalb/Acetamin/Caff 50-325-40 1 - 2 tab PO Q6HR PRN #15 tab 02/16/20 Unknown Rx [Fioricet 50-325-40] Cyclobenzaprine HCl [Flexeril 5 MG 5 mg PO Q8H PRN #15 tab 02/16/20 Unknown Rx TAB] Ketorolac [Toradol] 10 mg PO Q8H PRN #20 tablet 02/16/20 Unknown Rx Ondansetron [Zofran Odt] 4 mg PO Q6HR PRN #20 tab.rapdis 02/16/20 Unknown Rx ED Physical Exam - General Limitations: No Limitations General appearance: alert, in no apparent distress - Head Head exam: Present: atraumatic, normocephalic, normal inspection - Eye Eye exam: Present: normal appearance, PERRL, EOMI Pupils: Present: normal accommodation - ENT ENT exam: Present: normal exam, normal orophraynx, mucous membranes moist, TM's normal bilaterally, normal external ear exam - Neck Neck exam: Present: normal inspection, full ROM. Absent: tenderness, lymphadenopathy - Respiratory Respiratory exam: Present: normal lung sounds bilaterally. Absent: respiratory distress, wheezes, rales, rhonchi, chest wall tenderness, accessory muscle use, decreased breath sounds - Cardiovascular Cardiovascular Exam: Present: normal rhythm, bradycardia, normal heart sounds. Absent: systolic murmur, diastolic murmur, rubs, gallop - GI/Abdominal GI/Abdominal exam: Present: soft, normal bowel sounds. Absent: tenderness, guarding, rebound, hyperactive bowel sounds - Extremities Exam Extremities exam: Present: normal inspection, full ROM, normal capillary refill - Back Exam Back exam: Present: normal inspection, full ROM. Absent: tenderness, CVA tenderness (R), CVA tenderness (L), muscle spasm, paraspinal tenderness, vertebral tenderness - Neurological Exam Neurological exam: Present: alert, oriented X3, CN II-XII intact, normal gait, reflexes normal - Psychiatric Psychiatric exam: Present: normal affect, normal mood - Skin Skin exam: Present: warm, dry, intact, normal color. Absent: rash ED Course Vital Signs 02/16/20 18:26 Temperature 98.5 F Pulse Rate 56 L Respiratory 15 Rate Blood Pressure 145/86 O2 Sat by Pulse 100 Oximetry ED Medical Decision Making - Radiology Data Radiology results: report reviewed, image reviewed Findings [facility] [address] [place] [address] Cat Scan Report Signed Patient: ANDREW REESE MR #: [id number] : 1985 Acct:[id number] Age/Sex: 34 / F ADM Date: 02/16/20 Loc: ED Attending Dr: Ordering Physician: MELVA JAMES Date of Service: 02/16/20 Procedure(s): CT head/brain wo con Accession Number(s): [id number] cc: MELVA JAMES CT HEAD WITHOUT CONTRAST INDICATION / CLINICAL INFORMATION: Headache. TECHNIQUE: All CT scans at this location are performed using CT dose reduction for ALARA by means of automated exposure control. COMPARISON: None available. FINDINGS: HEMORRHAGE: No evidence of intracranial hemorrhage or extra-axial fluid collection. EXTRA-AXIAL SPACES: Cortical sulci, sylvian fissures and basilar cisterns have an unremarkable appearance. VENTRICULAR SYSTEM: The ventricular system is of normal size and configuration. CEREBRAL PARENCHYMA: No areas of abnormal brain parenchymal attenuation are identified. There is no indication of recent infarction. MIDLINE SHIFT OR HERNIATION: There is no mass effect. CEREBELLUM / BRAINSTEM: Brainstem and cerebellum have an unremarkable appearance. INTRACRANIAL VESSELS:No abnormalities are identified on this noncontrast head CT. ORBITS: visualized portions of the orbits have an unremarkable appearance. SOFT TISSUES of HEAD: No significant abnormality. CALVARIUM: Evaluation of bone windows reveals no abnormalities. PARANASAL SINUSES / MASTOID AIR CELLS: Paranasal sinuses are free from inflammatory mucosal disease. Mastoid air cells are normally pneumatized. ADDITIONAL FINDINGS: None. IMPRESSION: 1. No intracranial abnormality on head CT without contrast.. Signer Name: Jacques Millan MD Signed: 02/16/2020 9:13 PM Workstation Name: [id number] Transcribed By: Dictated By: Jacques Millan MD Electronically Authenticated By: Jacques Millan MD Signed Date/Time: 02/16/202112 DD/ 10 TD/TT: - Medical Decision Making This is a 34-year-old -[place] female with a history of migraine headaches who presents to the ED with complaint of acute onset persistent severe left retro-orbital and frontal headache for the last 4 days. Patient states that she has also had nausea and vomiting intermittently with photophobia on the left eye for the last 2 days. Patient states that the symptoms are typical of her chronic migraine headaches although she has not had headache for over 6 months. Patient states that she has been taking [id number] medications with no relief. In the ED, patient is alert and oriented x3 and is not in distress but appears to be in pain and uncomfortable. Patient was treated for pain and nausea in the ED, and the head CT scan without contrast shows no acute intracranial abnormalities or hemorrhage. On reevaluation, patient's pain is well controlled medications. Nausea and vomiting have also been controlled, and patient is able to drink fluids in the ED with no nausea vomiting. Patient is neurologically and hemodynamically stable and was discharged home on medications and advised to follow-up with her primary care physician in 3 to 5 days for reevaluation or return to the ED immediately if symptoms get worse. - Differential Diagnosis Migraine headache; Tension headache; Sinus headache; URI; Sinusitis Critical care attestation.: If time is entered above; I have spent that time in minutes in the direct care of this critically ill patient, excluding procedure time. ED Disposition Clinical Impression: Nausea and vomiting in adult Migraine headache without aura Qualifiers: Status migrainosus presence: with status migrainosus Intractability: not intractable Qualified Code(s): G43.001 - Migraine without aura, not intractable, with status migrainosus Disposition: TO HOME OR SELFCARE Is pt being admited?: No Does the pt Need Aspirin: No Condition: Stable Instructions: Migraine Headache (ED), Acute Nausea and Vomiting (ED) Additional Instructions: Take medication with food, drink plenty of fluids and follow-up with your primary care physician in 5 to 7 days for reevaluation. Return to the ED immediately if symptoms get worse. Prescriptions: Butalb/Acetamin/Caff 50-325-40 [Fioricet 50-325-40] 1 - 2 tab PO Q6HR PRN #15 tab PRN Reason: Headache Cyclobenzaprine HCl [Flexeril 5 MG TAB] 5 mg PO Q8H PRN #15 tab PRN Reason: Muscle Spasm Ketorolac [Toradol] 10 mg PO Q8H PRN #20 tablet PRN Reason: Pain Ondansetron [Zofran Odt] 4 mg PO Q6HR PRN #20 tab.rapdis PRN Reason: Nausea Referrals: [facility] [Provider Group] - 3-5 Days Time of Disposition: 22:09 Print Language: KENYAN
== END 2020-02-16 22:41 | disposition home or self-care (01) ==
LOC: ED 17:52
DX: G43.001 Migraine without aura, not intractable, with status migrainosus (principal); F17.200 Nicotine dependence, unspecified, uncomplicated; F12.10 Cannabis abuse, uncomplicated; Z79.899 Other long term (current) drug therapy
CPT/HCPCS: 70450; 96374; 96375; 99283; J1200; J1885; J2765

== ENCOUNTER 2020-02-18 09:17 | Emergency (ER) | payer MEDICAID ==
[2020-02-18 10:19] LABS: Basophils % (Auto) 0.3 % (0.0-1.8); Eosinophils % (Auto) 0.2 % (0.0-4.3); Hemoglobin 12.6 gm/dl (10.1-14.3); Lymphocytes # (Auto) 1.8 K/mm3 (1.2-5.4); Lymphocytes % (Auto) 18.5 % (13.4-35.0); Mean Corpuscular HGB Conc 33 % (30-34); Mean Corpuscular Volume 95 fl (79-97); Monocytes # (Auto) 0.7 K/mm3 (0.0-0.8); Monocytes % (Auto) 7.1 % (0.0-7.3); Red Blood Count 3.99 M/mm3 (3.65-5.03); Red Cell Distribution Width 15.5 % (13.2-15.2)
[2020-02-18] MEDS ORDERED: ONDANSETRON 4 MG/2 ML INJ IM ONE (10:29)
--- NOTE | 2020-02-18 10:31 | Emergency Department Report ---
ED General Adult HPI - General Chief complaint: Abdominal Pain Stated complaint: ABDOMINAL PAIN Time Seen by Provider: 02/18/20 09:28 Source: patient, EMS Mode of arrival: Stretcher Limitations: No Limitations - History of Present Illness Initial comments: 34-year-old female with 3 emergency department visits over the last 3 days. She was seen here for headache and had a normal CT and discharged 2 days ago. Yesterday she was seen at another hospital for abdominal pain. No specific diagnosis was made. The patient also had a previous CT of the abdomen and pelvis here as well as ultrasound studies which were only suggestive of fibroid. In any case the patient states that she took Zofran at 6 AM this morning but she is still nauseated. She states that she vomited x1. She states she did not take the Pepcid as was prescribed. At the time of my encounter she is resting comfortably/sleeping. She arouses without difficulty. She has not vomited now for over 4 hours. She is requesting something for nausea. She does not report any signs of GI bleeding. She is not complaining of abdominal pain. -: Gradual, days(s) Location: abdomen Consistency: now resolved Improves with: none Worsens with: none Associated Symptoms: denies other symptoms, nausea/vomiting Treatments Prior to Arrival: other (Zofran) - Related Data Previous Rx's Medication Instructions Recorded Last Taken Type Acetaminophen/Codeine 1 tab PO Q6H PRN #14 tab 11/16/14 Unknown Rx [Acetaminophen-Codeine #3 TAB] Sulfamethoxazole/Trimethoprim 1 each PO BID #14 tablet 11/16/14 Unknown Rx [Bactrim Ds] Clindamycin [Clindamycin CAP] 450 mg PO Q8HR 7 Days capsule 05/10/17 Unknown Rx Ibuprofen [Motrin 600 MG tab] 600 mg PO Q8H PRN #30 tablet 05/10/17 Unknown Rx traMADoL [Ultram] 50 mg PO Q4HR PRN #12 tablet 05/10/17 Unknown Rx Albuterol INH(or & Nicu Only) 2 puff IH QID PRN #1 inhalation 03/22/18 Unknown Rx [ProAir HFA Inhaler] Azithromycin [Zithromax Z-BRANNON] 250 mg PO QDAY #6 tablet 03/22/18 Unknown Rx Benzonatate [Tessalon Perles] 100 mg PO Q8HR #20 capsule 03/22/18 Unknown Rx traMADoL [Ultram 50 MG tab] 50 mg PO Q6HR PRN #12 tablet 03/22/18 Unknown Rx Cyclobenzaprine [Flexeril] 10 mg PO QHS #20 tablet 04/25/19 Unknown Rx Ibuprofen [Motrin 800 MG tab] 800 mg PO Q8HR #30 tablet 04/25/19 Unknown Rx Butalb/Acetamin/Caff 50-325-40 1 - 2 tab PO Q6HR PRN #15 tab 02/16/20 Unknown Rx [Fioricet 50-325-40] Cyclobenzaprine HCl [Flexeril 5 MG 5 mg PO Q8H PRN #15 tab 02/16/20 Unknown Rx TAB] Ketorolac [Toradol] 10 mg PO Q8H PRN #20 tablet 02/16/20 Unknown Rx Ondansetron [Zofran Odt] 4 mg PO Q6HR PRN #20 tab.rapdis 02/16/20 Unknown Rx Allergies Allergy/AdvReac Type Severity Reaction Status Date / Time No Known Allergies Allergy Verified 02/16/20 18:28 ED Review of Systems ROS: Stated complaint: ABDOMINAL PAIN Other details as noted in HPI Constitutional: denies: chills, fever Eyes: denies: eye pain, eye discharge, vision change ENT: denies: ear pain, throat pain Respiratory: denies: cough, shortness of breath, wheezing Cardiovascular: denies: chest pain, palpitations Endocrine: no symptoms reported Gastrointestinal: abdominal pain, nausea, vomiting. denies: diarrhea Genitourinary: denies: urgency, dysuria, discharge Musculoskeletal: denies: back pain, joint swelling, arthralgia Skin: denies: rash, lesions Neurological: denies: headache, weakness, paresthesias Psychiatric: denies: anxiety, depression Hematological/Lymphatic: denies: easy bleeding, easy bruising ED Past Medical Hx - Past Medical History Hx Headaches / Migraines: Yes Additional medical history: Pancreatitis- ovarian cyst - Surgical History Additional Surgical History: x1 - Social History Smoking Status: Current Every Day Smoker Substance Use Type: Alcohol, Marijuana - Medications Home Medications: Home Medications Medication Instructions Recorded Confirmed Last Taken Type Acetaminophen/Codeine 1 tab PO Q6H PRN #14 tab 11/16/14 Unknown Rx [Acetaminophen-Codeine #3 TAB] Sulfamethoxazole/Trimethoprim 1 each PO BID #14 tablet 11/16/14 Unknown Rx [Bactrim Ds] Clindamycin [Clindamycin CAP] 450 mg PO Q8HR 7 Days capsule 05/10/17 Unknown Rx Ibuprofen [Motrin 600 MG tab] 600 mg PO Q8H PRN #30 tablet 05/10/17 Unknown Rx traMADoL [Ultram] 50 mg PO Q4HR PRN #12 tablet 05/10/17 Unknown Rx Albuterol INH(or & Nicu Only) 2 puff IH QID PRN #1 inhalation 03/22/18 Unknown Rx [ProAir HFA Inhaler] Azithromycin [Zithromax Z-BRANNON] 250 mg PO QDAY #6 tablet 03/22/18 Unknown Rx Benzonatate [Tessalon Perles] 100 mg PO Q8HR #20 capsule 03/22/18 Unknown Rx traMADoL [Ultram 50 MG tab] 50 mg PO Q6HR PRN #12 tablet 03/22/18 Unknown Rx Cyclobenzaprine [Flexeril] 10 mg PO QHS #20 tablet 04/25/19 Unknown Rx Ibuprofen [Motrin 800 MG tab] 800 mg PO Q8HR #30 tablet 04/25/19 Unknown Rx Butalb/Acetamin/Caff 50-325-40 1 - 2 tab PO Q6HR PRN #15 tab 02/16/20 Unknown Rx [Fioricet 50-325-40] Cyclobenzaprine HCl [Flexeril 5 MG 5 mg PO Q8H PRN #15 tab 02/16/20 Unknown Rx TAB] Ketorolac [Toradol] 10 mg PO Q8H PRN #20 tablet 02/16/20 Unknown Rx Ondansetron [Zofran Odt] 4 mg PO Q6HR PRN #20 tab.rapdis 02/16/20 Unknown Rx ED Physical Exam - General Limitations: No Limitations General appearance: alert, in no apparent distress - Head Head exam: Present: atraumatic, normocephalic - Eye Eye exam: Present: normal appearance. Absent: scleral icterus - ENT ENT exam: Present: mucous membranes moist - Neck Neck exam: Present: normal inspection - Respiratory Respiratory exam: Present: normal lung sounds bilaterally. Absent: respiratory distress - Cardiovascular Cardiovascular Exam: Present: regular rate, normal rhythm. Absent: systolic murmur, diastolic murmur, rubs, gallop - GI/Abdominal GI/Abdominal exam: Present: soft, normal bowel sounds. Absent: distended, tenderness, guarding, rebound, rigid - Extremities Exam Extremities exam: Present: normal inspection - Back Exam Back exam: Present: normal inspection - Neurological Exam Neurological exam: Present: alert, oriented X3, CN II-XII intact. Absent: motor sensory deficit - Psychiatric Psychiatric exam: Present: normal affect, normal mood - Skin Skin exam: Present: warm, dry, intact, normal color. Absent: rash ED Course Vital Signs 02/18/20 09:22 Temperature 97.3 F L Pulse Rate 59 L Respiratory 16 Rate Blood Pressure 112/63 [Left] O2 Sat by Pulse 100 Oximetry ED Medical Decision Making - Lab Data Result diagrams: 02/18/20 09:46 02/18/20 09:46 Laboratory Results - last 24 hr 02/18/20 02/18/20 09:46 09:46 WBC 9.7 RBC 3.99 Hgb 12.6 Hct 38.0 MCV 95 MCH 32 MCHC 33 RDW 15.5 H Lymph % (Auto) 18.5 [place] % (Auto) 7.1 Eos % (Auto) 0.2 Baso % (Auto) 0.3 Lymph # 1.8 [place] # 0.7 Eos # 0.0 Baso # 0.0 Seg Neutrophils % 73.9 H Seg Neutrophils # 7.2 HCG, Qual Negative Laboratory Results - last 24 hr 02/18/20 02/18/20 02/18/20 09:46 09:46 09:46 WBC 9.7 RBC 3.99 Hgb 12.6 Hct 38.0 MCV 95 MCH 32 MCHC 33 RDW 15.5 H Plt Count 226 Lymph % (Auto) 18.5 [place] % (Auto) 7.1 Eos % (Auto) 0.2 Baso % (Auto) 0.3 Lymph # 1.8 [place] # 0.7 Eos # 0.0 Baso # 0.0 Seg Neutrophils % 73.9 H Seg Neutrophils # 7.2 Sodium 139 Potassium 3.6 Chloride 105.3 Carbon Dioxide 20 L Anion Gap 17 BUN 12 Creatinine 0.8 Estimated GFR > 60 BUN/Creatinine Ratio 15 Glucose 107 H Calcium 9.6 Total Bilirubin 0.50 Direct Bilirubin < 0.2 AST 15 ALT 10 Alkaline Phosphatase 51 Total Protein 7.5 Albumin 4.7 Albumin/Globulin Ratio 1.7 Lipase 33 HCG, Qual Negative Urine Color Urine Turbidity Urine pH Ur Specific [place] Urine Protein Urine Glucose (UA) Urine Ketones Urine Blood Urine Nitrite Urine Bilirubin Urine Urobilinogen Ur Leukocyte Esterase Urine WBC (Auto) Urine RBC (Auto) U Epithel Cells (Auto) Urine Mucus Urine Opiates Screen Urine Methadone Screen Ur Barbiturates Screen Ur Phencyclidine Scrn Ur Amphetamines Screen U Benzodiazepines Scrn Urine Cocaine Screen U Marijuana (THC) Screen Drugs of Abuse Note 02/18/20 02/18/20 10:43 10:43 WBC RBC Hgb Hct MCV MCH MCHC RDW Plt Count Lymph % (Auto) [place] % (Auto) Eos % (Auto) Baso % (Auto) Lymph # [place] # Eos # Baso # Seg Neutrophils % Seg Neutrophils # Sodium Potassium Chloride Carbon Dioxide Anion Gap BUN Creatinine Estimated GFR BUN/Creatinine Ratio Glucose Calcium Total Bilirubin Direct Bilirubin AST ALT Alkaline Phosphatase Total Protein Albumin Albumin/Globulin Ratio Lipase HCG, Qual Urine Color Yellow Urine Turbidity Clear Urine pH 5.0 Ur Specific [place] 1.033 H Urine Protein 30 mg/dl Urine Glucose (UA) Neg Urine Ketones 20 Urine Blood Neg Urine Nitrite Neg Urine Bilirubin Neg Urine Urobilinogen 2.0 Ur Leukocyte Esterase Neg Urine WBC (Auto) 2.0 Urine RBC (Auto) 3.0 U Epithel Cells (Auto) 6.0 Urine Mucus 3+ Urine Opiates Screen Presumptive negative Urine Methadone Screen Presumptive negative Ur Barbiturates Screen Presumptive positive Ur Phencyclidine Scrn Presumptive negative Ur Amphetamines Screen Presumptive negative U Benzodiazepines Scrn Presumptive negative Urine Cocaine Screen Presumptive positive U Marijuana (THC) Screen Presumptive positive Drugs of Abuse Note Disclamer Critical care attestation.: If time is entered above; I have spent that time in minutes in the direct care of this critically ill patient, excluding procedure time. ED Disposition Clinical Impression: Polysubstance abuse, Nausea and vomiting in adult Disposition: DC-01 TO HOME OR SELFCARE Is pt being admited?: No Condition: Undetermined Instructions: Abdominal Pain (ED), Polysubstance Abuse (ED) Additional Instructions: Obviously do not abuse substances. Follow-up with primary care provider. Return any acute change or problem. Referrals: PRIMARY CARE, [Primary Care Provider] - 3-5 Days [facility] [Provider Group] - 3-[address] [facility] [Outside] - 3-5 Days Time of Disposition: 11:58
[2020-02-18] MEDS ORDERED: traMADol 50 MG TAB PO ONE (10:42)
[2020-02-18 10:46] LABS: Alanine Aminotransferase 10 units/L (7-56); Albumin 4.7 g/dL (3.9-5); BUN/Creatinine Ratio 15; Blood Urea Nitrogen 12 mg/dL (7-17); Calcium 9.6 mg/dL (8.4-10.2); Hemolysis Index 9
[2020-02-18 10:48] LABS: Bilirubin,Direct < 0.2 mg/dL (0-0.2)
[2020-02-18 11:03] LABS: Bilirubin,Urine NEG (Negative); Blood,Urine NEG (Negative); Color,Urine Yellow (Yellow); Mucus,Urine 3+ /HPF
[2020-02-18 11:05] LABS: Platelet Count 226 K/mm3 (140-440)
[2020-02-18 11:08] LABS: Amphetamine Screen,Urine PRESUMPTIVE NEGATIVE; Benzodiazepines Screen,Urine PRESUMPTIVE NEGATIVE; Methadone Screen,Urine PRESUMPTIVE NEGATIVE; Opiate Screen,Urine PRESUMPTIVE NEGATIVE
[2020-02-18 11:31] LABS: Cannabinoid Screen,Urine PRESUMPTIVE POSITIVE; Cocaine Screen,Urine PRESUMPTIVE POSITIVE
[2020-02-20 12:33] VITALS: BP 110/63
== END 2020-02-18 12:17 | disposition home or self-care (01) ==
LOC: ED 09:17
DX: F19.10 Other psychoactive substance abuse, uncomplicated (principal); R11.2 Nausea with vomiting, unspecified; F17.200 Nicotine dependence, unspecified, uncomplicated; F12.90 Cannabis use, unspecified, uncomplicated; Z79.899 Other long term (current) drug therapy; Z98.890 Other specified postprocedural states
CPT/HCPCS: 36415; 80048; 80076; 80307; 81001; 83690; 84703; 85025; 96372; 99284; J2405

== ENCOUNTER 2020-02-19 12:24 | Emergency (ER) | payer MEDICAID ==
[2020-02-20 13:23] VITALS: BP 116/72
== END 2020-02-19 14:12 | disposition left against medical advice (07) ==
LOC: ED 12:24
DX: R10.9 Unspecified abdominal pain (principal); Z53.21 Procedure and treatment not carried out due to patient leaving prior to being seen by health care provider

== ENCOUNTER 2020-10-19 20:30 | Emergency (ER) | payer MEDICAID ==
--- NOTE | 2020-10-19 20:43 | Event Note ---
ED Screening Note ED Screening Note: chest pain and epigastric pain began yesterday states she ate spicy jerk chicken, states she drank liquor states last had pancreatitis a couple of months ago +nausea no v/d no fever no urinary symptoms no SOB PMHx pancreatitis no allergies to meds LNMP: currently (+) ETOH 2-3 times a month + tobacco +marijuana This initial assessment/diagnostic orders/clinical plan/treatment(s) is/are subject to change based on patients health status, clinical progression and re- assessment by fellow clinical providers in the ED. Further treatment and workup at subsequent clinical providers discretion. Patient/guardian urged not to elope from the ED as their condition may be serious if not clinically assessed and managed. Initial orders include: labs, UA, EKG
[2020-10-19] MEDS ORDERED: PANTOPRAZOLE 40 MG INJ IV ONE (21:01)
[2020-10-19] MEDS ORDERED: SODIUM CHLORIDE 0.9% 1000 ML 1,000 ML IV ONE (21:01)
[2020-10-19] MEDS ORDERED: ONDANSETRON 4 MG/2 ML INJ IV ONE (21:01)
[2020-10-19] MEDS ORDERED: MORPHINE 4 MG/1 ML INJ IV ONE (21:01)
[2020-10-19 21:18] LABS: Basophils % (Auto) 0.6 % (0.0-1.8); Eosinophils % (Auto) 0.8 % (0.0-4.3); Hemoglobin 11.5 gm/dl (10.1-14.3); Lymphocytes # (Auto) 3.1 K/mm3 (1.2-5.4); Lymphocytes % (Auto) 50.3 % (13.4-35.0); Mean Corpuscular HGB Conc 33 % (30-34); Mean Corpuscular Volume 90 fl (79-97); Monocytes # (Auto) 0.6 K/mm3 (0.0-0.8); Monocytes % (Auto) 9.9 % (0.0-7.3); Platelet Count 255 K/mm3 (140-440); Red Blood Count 3.88 M/mm3 (3.65-5.03); Red Cell Distribution Width 17.5 % (13.2-15.2)
[2020-10-19 21:18] LABS: Bacteria,Urine 2+ /HPF (Negative); Bilirubin,Urine NEG (Negative); Blood,Urine LG (Negative); Color,Urine Red (Yellow); Urobilinogen,Urine < 2.0 mg/dL (<2.0)
[2020-10-19 21:20] LABS: RBC,Urine > 182.0 /HPF (0.0-6.0)
--- NOTE | 2020-10-19 21:24 | Emergency Department Report ---
ED Abdominal Pain HPI - General Chief Complaint: Chest Pain Stated Complaint: CHEST PAIN Time Seen by Provider: 10/19/20 20:41 Source: patient Mode of arrival: Ambulatory Limitations: No Limitations - History of Present Illness Initial Comments: Patient is 35 years old female with history of chronic pancreatitis. Patient presented to the ER complaining of epigastric pain that radiated to her chest mainly to the midline area. Patient stated that her symptoms started after she ate a spicy food 2 days ago. Patient also admitted that she has been drinking liquor. Patient complaining of nausea and vomiting but no diarrhea. No fever or chills. MD Complaint: abdominal pain -: days(s) (2) Location: epigastric Radiation: chest Severity scale (0 -10): 8 Quality: sharp - Related Data Previous Rx's Medication Instructions Recorded Last Taken Type Acetaminophen/Codeine 1 tab PO Q6H PRN #14 tab 11/16/14 Unknown Rx [Acetaminophen-Codeine #3 TAB] Sulfamethoxazole/Trimethoprim 1 each PO BID #14 tablet 11/16/14 Unknown Rx [Bactrim Ds] Clindamycin [Clindamycin CAP] 450 mg PO Q8HR 7 Days capsule 05/10/17 Unknown Rx Ibuprofen [Motrin 600 MG tab] 600 mg PO Q8H PRN #30 tablet 05/10/17 Unknown Rx traMADoL [Ultram] 50 mg PO Q4HR PRN #12 tablet 05/10/17 Unknown Rx Albuterol Mdi (or & Nicu Only) 2 puff IH QID PRN #1 inhalation 03/22/18 Unknown Rx [ProAir HFA Inhaler] Azithromycin [Zithromax Z-BRANNON] 250 mg PO QDAY #6 tablet 03/22/18 Unknown Rx Benzonatate [Tessalon Perles] 100 mg PO Q8HR #20 capsule 03/22/18 Unknown Rx traMADoL [Ultram 50 MG tab] 50 mg PO Q6HR PRN #12 tablet 03/22/18 Unknown Rx Cyclobenzaprine [Flexeril] 10 mg PO QHS #20 tablet 04/25/19 Unknown Rx Ibuprofen [Motrin 800 MG tab] 800 mg PO Q8HR #30 tablet 04/25/19 Unknown Rx Butalb/Acetamin/Caff 50-325-40 1 - 2 tab PO Q6HR PRN #15 tab 02/16/20 Unknown Rx [Fioricet 50-325-40] Cyclobenzaprine HCl [Flexeril 5 MG 5 mg PO Q8H PRN #15 tab 02/16/20 Unknown Rx TAB] Ketorolac [Toradol] 10 mg PO Q8H PRN #20 tablet 02/16/20 Unknown Rx Ondansetron [Zofran Odt] 4 mg PO Q6HR PRN #20 tab.rapdis 02/16/20 Unknown Rx Allergies Allergy/AdvReac Type Severity Reaction Status Date / Time No Known Allergies Allergy Verified 02/16/20 18:28 ED Review of Systems ROS: Stated complaint: CHEST PAIN Other details as noted in HPI Comment: All other systems reviewed and negative Constitutional: denies: chills, fever Respiratory: denies: cough, shortness of breath, SOB with exertion, SOB at rest, wheezing Cardiovascular: chest pain. denies: palpitations, dyspnea on exertion Gastrointestinal: abdominal pain, nausea, vomiting. denies: diarrhea Musculoskeletal: denies: back pain Neurological: denies: headache, weakness, numbness, paresthesias, confusion, abnormal gait ED Past Medical Hx - Past Medical History Previous Medical History?: Yes Hx Headaches / Migraines: Yes Additional medical history: Pancreatitis- ovarian cyst - Surgical History Past Surgical History?: Yes Additional Surgical History: x1 - Social History Smoking Status: Current Every Day Smoker Substance Use Type: Alcohol, Marijuana - Medications Home Medications: Home Medications Medication Instructions Recorded Confirmed Last Taken Type Acetaminophen/Codeine 1 tab PO Q6H PRN #14 tab 11/16/14 Unknown Rx [Acetaminophen-Codeine #3 TAB] Sulfamethoxazole/Trimethoprim 1 each PO BID #14 tablet 11/16/14 Unknown Rx [Bactrim Ds] Clindamycin [Clindamycin CAP] 450 mg PO Q8HR 7 Days capsule 05/10/17 Unknown Rx Ibuprofen [Motrin 600 MG tab] 600 mg PO Q8H PRN #30 tablet 05/10/17 Unknown Rx traMADoL [Ultram] 50 mg PO Q4HR PRN #12 tablet 05/10/17 Unknown Rx Albuterol Mdi (or & Nicu Only) 2 puff IH QID PRN #1 inhalation 03/22/18 Unknown Rx [ProAir HFA Inhaler] Azithromycin [Zithromax Z-BRANNON] 250 mg PO QDAY #6 tablet 03/22/18 Unknown Rx Benzonatate [Tessalon Perles] 100 mg PO Q8HR #20 capsule 03/22/18 Unknown Rx traMADoL [Ultram 50 MG tab] 50 mg PO Q6HR PRN #12 tablet 03/22/18 Unknown Rx Cyclobenzaprine [Flexeril] 10 mg PO QHS #20 tablet 04/25/19 Unknown Rx Ibuprofen [Motrin 800 MG tab] 800 mg PO Q8HR #30 tablet 04/25/19 Unknown Rx Butalb/Acetamin/Caff 50-325-40 1 - 2 tab PO Q6HR PRN #15 tab 02/16/20 Unknown Rx [Fioricet 50-325-40] Cyclobenzaprine HCl [Flexeril 5 MG 5 mg PO Q8H PRN #15 tab 02/16/20 Unknown Rx TAB] Ketorolac [Toradol] 10 mg PO Q8H PRN #20 tablet 02/16/20 Unknown Rx Ondansetron [Zofran Odt] 4 mg PO Q6HR PRN #20 tab.rapdis 02/16/20 Unknown Rx ED Physical Exam - General Limitations: No Limitations General appearance: alert, in no apparent distress - Head Head exam: Present: atraumatic, normocephalic, normal inspection - Eye Eye exam: Present: normal appearance - ENT ENT exam: Present: mucous membranes dry - Neck Neck exam: Present: normal inspection, full ROM. Absent: tenderness, meningismus - Respiratory Respiratory exam: Present: normal lung sounds bilaterally - Cardiovascular Cardiovascular Exam: Present: regular rate, normal rhythm, normal heart sounds - GI/Abdominal GI/Abdominal exam: Present: soft, normal bowel sounds. Absent: distended, tenderness, guarding, rebound, rigid, organomegaly, mass, bruit, pulsatile mass, hernia - Extremities Exam Extremities exam: Present: normal inspection, full ROM, normal capillary refill. Absent: tenderness, pedal edema, joint swelling, calf tenderness - Back Exam Back exam: Present: normal inspection, full ROM. Absent: CVA tenderness (R), CVA tenderness (L), muscle spasm, paraspinal tenderness, vertebral tenderness - Neurological Exam Neurological exam: Present: alert, oriented X3, CN II-XII intact, normal gait, reflexes normal - Psychiatric Psychiatric exam: Present: normal mood - Skin Skin exam: Present: warm, intact, normal color ED Course Vital Signs 01/09/21 01/09/21 01/09/21 20:34 21:13 23:58 Temperature 98.6 F Pulse Rate 67 60 Respiratory 18 18 15 Rate Blood Pressure 111/67 Blood Pressure 134/85 [Left] O2 Sat by Pulse 98 97 Oximetry ED Medical Decision Making - Lab Data Result diagrams: 10/19/20 21:02 10/19/20 21:39 - EKG Data -: EKG Interpreted by Me EKG shows normal: sinus rhythm Rate: tachycardia - EKG Data Interpretation: no acute changes - Medical Decision Making Patient is 35 years old female with history of chronic pancreatitis. Patient presented to the ER complaining of epigastric pain that radiated to her chest mainly to the midline area. Patient stated that her symptoms started after she ate a spicy food 2 days ago. Patient also admitted that she has been drinking liquor. Patient complaining of nausea and vomiting but no diarrhea. No fever or chills. Patient received morphine, Zofran, Protonix and normal saline. Patient stated that she is feeling much better. Labs reviewed and showed slightly elevated lipase at 117 consistent with her chronic pancreatitis and recent drinking. Abdomen is soft, nontender no evidence of acute abdomen. Patient given prescription for tramadol Zofran and Nexium and advised to follow-up with her primary doctor in the next 2 to 3 days and to return to the ER if she develop any new symptoms. Critical care attestation.: If time is entered above; I have spent that time in minutes in the direct care of this critically ill patient, excluding procedure time. ED Disposition Clinical Impression: Acute abdominal pain, Acute pancreatitis Disposition: - TO HOME OR SELFCARE Is pt being admited?: No Condition: Stable Instructions: Acute Pancreatitis, [id number], Abdominal Pain, Adult, [id number] Referrals: PARTH GUSMAN MD [Primary Care Provider] - 3-5 Days
[2020-10-19 21:32] LABS: Alanine Aminotransferase TNR units/L (7-56); Albumin TNR g/dL (3.9-5); BUN/Creatinine Ratio TNR; Bilirubin,Direct TNR mg/dL (0-0.2); Blood Urea Nitrogen TNR mg/dL (7-17); Calcium TNR mg/dL (8.4-10.2)
[2020-10-19 21:33] LABS: Hemolysis Index TNR
[2020-10-19 22:16] LABS: Alanine Aminotransferase 7 units/L (7-56); Albumin 3.7 g/dL (3.9-5); Blood Urea Nitrogen 6 mg/dL (7-17); Calcium 8.5 mg/dL (8.4-10.2); Hemolysis Index 2
[2020-10-19 22:25] LABS: BUN/Creatinine Ratio 9; Bilirubin,Direct < 0.2 mg/dL (0-0.2)
[2020-10-19] MEDS ORDERED: LIDOCAINE VISCOUS 2% 15 ML ORAL LIQD PO ONE (23:17)
[2020-10-19] MEDS ORDERED: ALUM-MAG HYDROXIDE-SIMETHICONE 200-200-20MG/5ML ORAL LIQD 30 ML PO ONE (23:17)
[2020-10-19 23:58] VITALS: BP 134/85
== END 2020-10-20 01:36 | disposition home or self-care (01) ==
LOC: ED 20:30
DX: K85.90 Acute pancreatitis without necrosis or infection, unspecified (principal); R10.13 Epigastric pain; G43.909 Migraine, unspecified, not intractable, without status migrainosus; F17.200 Nicotine dependence, unspecified, uncomplicated; F12.10 Cannabis abuse, uncomplicated; Z98.890 Other specified postprocedural states; Z79.899 Other long term (current) drug therapy; Z79.1 Long term (current) use of non-steroidal anti-inflammatories (NSAID); Z79.2 Long term (current) use of antibiotics
CPT/HCPCS: 36415; 80048; 80076; 81001; 83690; 84484; 84703; 85025; 87086; 93005; 96361; 96374; 96375; 99283; C9113; J2270; J2405; J7030

== ENCOUNTER 2021-07-03 19:19 | Emergency (ER) | payer MEDICAID ==
[2021-07-03] MEDS ORDERED: ONDANSETRON 4 MG/2 ML INJ IV ONE (20:20)
[2021-07-03] MEDS ORDERED: SODIUM CHLORIDE 0.9% 1000 ML 1,000 ML IV ONE (20:20)
[2021-07-03] MEDS ORDERED: KETOROLAC 30 MG/1 ML INJ IV ONE (20:20)
--- NOTE | 2021-07-03 20:33 | Emergency Department Report ---
ED Abdominal Pain HPI - General Chief Complaint: Abdominal Pain Stated Complaint: LEFT SIDE PAIN NAUSEA HEADACHE Time Seen by Provider: 07/03/21 20:20 Source: patient Mode of arrival: Ambulatory Limitations: No Limitations - History of Present Illness Initial Comments: Patient presents for left flank pain 5/10 radiating to suprapubic region x2 days. Patient dysuria described as dribble. Denies hematuria there has been no fevers no chills no nausea vomiting. Pain described as 5/10 spasms and cramping. Patient denies history of renal stones no other medical problems. States no relieving or exacerbating symptoms. MD Complaint: flank pain Severity scale (0 -10): 10 - Related Data Previous Rx's Medication Instructions Recorded Last Taken Type Acetaminophen/Codeine 1 tab PO Q6H PRN #14 tab 11/16/14 Unknown Rx [Acetaminophen-Codeine #3 TAB] Sulfamethoxazole/Trimethoprim 1 each PO BID #14 tablet 11/16/14 Unknown Rx [Bactrim Ds] Clindamycin [Clindamycin CAP] 450 mg PO Q8HR 7 Days capsule 05/10/17 Unknown Rx Ibuprofen [Motrin 600 MG tab] 600 mg PO Q8H PRN #30 tablet 05/10/17 Unknown Rx traMADoL [Ultram] 50 mg PO Q4HR PRN #12 tablet 05/10/17 Unknown Rx Albuterol Mdi (or & Nicu Only) 2 puff IH QID PRN #1 inhalation 03/22/18 Unknown Rx [ProAir HFA Inhaler] Azithromycin [Zithromax Z-BRANNON] 250 mg PO QDAY #6 tablet 03/22/18 Unknown Rx Benzonatate [Tessalon Perles] 100 mg PO Q8HR #20 capsule 03/22/18 Unknown Rx traMADoL [Ultram 50 MG tab] 50 mg PO Q6HR PRN #12 tablet 03/22/18 Unknown Rx Cyclobenzaprine [Flexeril] 10 mg PO QHS #20 tablet 04/25/19 Unknown Rx Ibuprofen [Motrin 800 MG tab] 800 mg PO Q8HR #30 tablet 04/25/19 Unknown Rx Butalb/Acetamin/Caff 50-325-40 1 - 2 tab PO Q6HR PRN #15 tab 02/16/20 Unknown Rx [Fioricet 50-325-40] Cyclobenzaprine HCl [Flexeril 5 MG 5 mg PO Q8H PRN #15 tab 02/16/20 Unknown Rx TAB] Ketorolac [Toradol] 10 mg PO Q8H PRN #20 tablet 02/16/20 Unknown Rx Ondansetron [Zofran Odt] 4 mg PO Q6HR PRN #20 tab.rapdis 02/16/20 Unknown Rx Esomeprazole Magnesium [NexIUM] 40 mg PO QDAY #30 capsule. 10/20/20 Unknown Rx Ondansetron [Zofran Odt] 4 mg PO Q8HR PRN #14 tab.rapdis 10/20/20 Unknown Rx traMADoL [Ultram 50 MG tab] 50 mg PO Q4HR PRN #14 tablet 10/20/20 Unknown Rx Ciprofloxacin HCl 500 mg PO BID 7 Days #14 tablet 07/03/21 Unknown Rx Ibuprofen [Motrin 800 MG tab] 800 mg PO Q8HR PRN #30 tablet 07/03/21 Unknown Rx Allergies Allergy/AdvReac Type Severity Reaction Status Date / Time No Known Allergies Allergy Verified 07/03/21 20:14 ED Review of Systems ROS: Stated complaint: LEFT SIDE PAIN NAUSEA HEADACHE Other details as noted in HPI Constitutional: denies: chills, fever Eyes: denies: eye pain, eye discharge, vision change ENT: denies: ear pain, throat pain Respiratory: denies: cough, shortness of breath, wheezing Cardiovascular: denies: chest pain, palpitations Endocrine: no symptoms reported Gastrointestinal: abdominal pain, nausea. denies: vomiting, diarrhea, constipation Genitourinary: urgency, dysuria, frequency. denies: hematuria, discharge Musculoskeletal: back pain (left flank pain ) Skin: denies: rash, lesions Neurological: denies: headache, weakness, paresthesias Psychiatric: denies: anxiety, depression Hematological/Lymphatic: denies: easy bleeding, easy bruising ED Past Medical Hx - Past Medical History Previous Medical History?: No Hx Headaches / Migraines: Yes Additional medical history: Pancreatitis- ovarian cyst - Surgical History Past Surgical History?: No Additional Surgical History: x1 - Social History Smoking Status: Current Every Day Smoker Substance Use Type: None - Medications Home Medications: Home Medications Medication Instructions Recorded Confirmed Last Taken Type Acetaminophen/Codeine 1 tab PO Q6H PRN #14 tab 11/16/14 Unknown Rx [Acetaminophen-Codeine #3 TAB] Sulfamethoxazole/Trimethoprim 1 each PO BID #14 tablet 11/16/14 Unknown Rx [Bactrim Ds] Clindamycin [Clindamycin CAP] 450 mg PO Q8HR 7 Days capsule 05/10/17 Unknown Rx Ibuprofen [Motrin 600 MG tab] 600 mg PO Q8H PRN #30 tablet 05/10/17 Unknown Rx traMADoL [Ultram] 50 mg PO Q4HR PRN #12 tablet 05/10/17 Unknown Rx Albuterol Mdi (or & Nicu Only) 2 puff IH QID PRN #1 inhalation 03/22/18 Unknown Rx [ProAir HFA Inhaler] Azithromycin [Zithromax Z-BRANNON] 250 mg PO QDAY #6 tablet 03/22/18 Unknown Rx Benzonatate [Tessalon Perles] 100 mg PO Q8HR #20 capsule 03/22/18 Unknown Rx traMADoL [Ultram 50 MG tab] 50 mg PO Q6HR PRN #12 tablet 03/22/18 Unknown Rx Cyclobenzaprine [Flexeril] 10 mg PO QHS #20 tablet 04/25/19 Unknown Rx Ibuprofen [Motrin 800 MG tab] 800 mg PO Q8HR #30 tablet 04/25/19 Unknown Rx Butalb/Acetamin/Caff 50-325-40 1 - 2 tab PO Q6HR PRN #15 tab 02/16/20 Unknown Rx [Fioricet 50-325-40] Cyclobenzaprine HCl [Flexeril 5 MG 5 mg PO Q8H PRN #15 tab 02/16/20 Unknown Rx TAB] Ketorolac [Toradol] 10 mg PO Q8H PRN #20 tablet 02/16/20 Unknown Rx Ondansetron [Zofran Odt] 4 mg PO Q6HR PRN #20 tab.rapdis 02/16/20 Unknown Rx Esomeprazole Magnesium [NexIUM] 40 mg PO QDAY #30 capsule. 10/20/20 Unknown Rx Ondansetron [Zofran Odt] 4 mg PO Q8HR PRN #14 tab.rapdis 10/20/20 Unknown Rx traMADoL [Ultram 50 MG tab] 50 mg PO Q4HR PRN #14 tablet 10/20/20 Unknown Rx Ciprofloxacin HCl 500 mg PO BID 7 Days #14 tablet 07/03/21 Unknown Rx Ibuprofen [Motrin 800 MG tab] 800 mg PO Q8HR PRN #30 tablet 07/03/21 Unknown Rx ED Physical Exam - General Limitations: No Limitations General appearance: alert, in no apparent distress - Head Head exam: Present: atraumatic, normocephalic - Eye Eye exam: Present: EOMI Pupils: Present: normal accommodation - ENT ENT exam: Present: mucous membranes moist - Neck Neck exam: Present: normal inspection, full ROM. Absent: tenderness - Respiratory Respiratory exam: Present: normal lung sounds bilaterally. Absent: respiratory distress, wheezes, chest wall tenderness - Cardiovascular Cardiovascular Exam: Present: regular rate, normal rhythm, normal heart sounds - GI/Abdominal GI/Abdominal exam: Present: soft, tenderness (left flank ), normal bowel sounds. Absent: guarding, rebound, rigid, bruit, hernia - Rectal Rectal exam: Present: deferred - Extremities Exam Extremities exam: Present: normal inspection, full ROM - Back Exam Back exam: Present: normal inspection, full ROM, CVA tenderness (L). Absent: vertebral tenderness - Neurological Exam Neurological exam: Present: alert, oriented X3, CN II-XII intact, normal gait - Psychiatric Psychiatric exam: Present: normal affect, normal mood - Skin Skin exam: Present: warm, dry, intact, normal color. Absent: rash ED Medical Decision Making - Lab Data Result diagrams: 07/03/21 20:20 07/03/21 20:20 Labs 07/03/21 07/03/21 07/03/21 20:20 20:20 Unknown WBC 10.0 RBC 4.07 Hgb 13.0 Hct 36.8 MCV 90 MCH 32 MCHC 36 H RDW 16.3 H Plt Count 299 Lymph % (Auto) 20.7 [place] % (Auto) 4.4 Eos % (Auto) 0.2 Baso % (Auto) 0.9 Lymph # (Auto) 2.0 [place] # (Auto) 0.4 Eos # (Auto) 0.0 Baso # (Auto) 0.1 Seg Neutrophils % 73.8 H Seg Neutrophils # 7.3 Sodium 134 L Potassium 3.7 Chloride 98.9 Carbon Dioxide 20 L Anion Gap 19 BUN 6 L Creatinine 0.8 Estimated GFR > 60 BUN/Creatinine Ratio 8 Glucose 98 Calcium 9.3 Total Bilirubin 1.10 AST 14 ALT 8 Alkaline Phosphatase 74 Total Protein 8.8 H Albumin 4.7 Albumin/Globulin Ratio 1.1 Urine Color Yellow Urine Turbidity Slightly-cloudy Urine pH 7.0 Ur Specific [place] 1.012 Urine Protein 30 mg/dl Urine Glucose (UA) Neg Urine Ketones Tr Urine Blood Sm Urine Nitrite Pos Urine Bilirubin Neg Urine Urobilinogen 4.0 Ur Leukocyte Esterase Sm Urine WBC (Auto) 21.0 H Urine RBC (Auto) 3.0 U Epithel Cells (Auto) 2.0 Urine Mucus Few Urine Yeast (Budding) Few Urine HCG, Qual Negative - Radiology Data Radiology results: report reviewed, image reviewed CT ABDOMEN AND PELVIS WITHOUT CONTRAST INDICATION / CLINICAL INFORMATION: LEFT sided flank pain that radiates to supra pubic region x 2 days. TECHNIQUE: Axial CT images were obtained through the abdomen and pelvis without IV contrast. All CT scans at this location are performed using CT dose reduction for ALARA by means of automated exposure control. COMPARISON: CT abdomen and pelvis 12/06/2019 FINDINGS: LOWER CHEST: No significant abnormality. LIVER: No significant abnormality. GALLBLADDER: No significant abnormality. BILE DUCTS: No significant abnormality. PANCREAS: No significant abnormality. SPLEEN: No significant abnormality. ADRENALS: No significant abnormality. RIGHT KIDNEY / URETER: No significant abnormality. LEFT KIDNEY / URETER: No significant abnormality. STOMACH / SMALL BOWEL: No significant abnormality. COLON: No significant abnormality. APPENDIX: Nonvisualized. PERITONEUM: No free fluid. No free air. No fluid collection. LYMPH NODES: No significant adenopathy. AORTA / ARTERIES: No significant abnormality. IVC / VEINS: No significant abnormality. URINARY BLADDER: No significant abnormality. REPRODUCTIVE ORGANS: No significant abnormality. ADDITIONAL FINDINGS: None. SKELETAL SYSTEM: No significant abnormality. IMPRESSION: 1. No acute abnormality. Signer Name: Partha Brown MD Signed: 07/03/2021 10:10 PM Workstation Name: [id number] - Medical Decision Making CT normal no renal stones no gallstones no masses no soft tissue abnormalities. UA positive for nitrates WBCs bacteria plan treat for UTI. Follow-up primary care doctor in 2 to 3 days. Continue to hydrate. Patient will be DC'd with prescriptions patient verbalized agreement and understanding with discharge plan. Patient DC'd to home in stable condition at this time. Critical care attestation.: If time is entered above; I have spent that time in minutes in the direct care of this critically ill patient, excluding procedure time. ED Disposition Clinical Impression: UTI (urinary tract infection) Qualifiers: Urinary tract infection type: acute cystitis Hematuria presence: without hematuria Qualified Code(s): N30.00 - Acute cystitis without hematuria Disposition: HOME / SELF CARE / HOMELESS Is pt being admited?: No Does the pt Need Aspirin: No Condition: Stable Instructions: Abdominal Pain (ED), Urinary Tract Infection, Adult Additional Instructions: Take medications as prescribed. Follow-up with your doctor in 2 to 3 days. Return to emergency department should symptoms worsen. Prescriptions: Ciprofloxacin HCl 500 mg PO BID 7 Days #14 tablet Ibuprofen [Motrin 800 MG tab] 800 mg PO Q8HR PRN #30 tablet PRN Reason: pain Referrals: RIGOBERTO CAMILO MD [Staff Physician] - 3-5 Days Forms: Work/School Release Form(ED) Time of Disposition: 23:11
[2021-07-03 20:56] LABS: Bilirubin,Urine NEG (Negative); Blood,Urine SM (Negative); Color,Urine Yellow (Yellow); HCG Qualitative,Urine Negative (Negative); Mucus,Urine FEW /HPF
[2021-07-03 21:04] LABS: Hematocrit 36.8 % (30.3-42.9); Mean Corpuscular HGB Conc 36 % (30-34); Mean Corpuscular Volume 90 fl (79-97); Platelet Count 299 K/mm3 (140-440); Red Blood Count 4.07 M/mm3 (3.65-5.03); Red Cell Distribution Width 16.3 % (13.2-15.2)
[2021-07-03 21:29] LABS: Alanine Aminotransferase 8 units/L (7-56); Albumin 4.7 g/dL (3.9-5); BUN/Creatinine Ratio 8; Blood Urea Nitrogen 6 mg/dL (7-17); Calcium 9.3 mg/dL (8.4-10.2); Hemolysis Index 3
[2021-07-03 21:42] LABS: Basophils # (Auto) 0.1 K/mm3 (0.0-0.1); Basophils % (Auto) 0.9 % (0.0-1.8); Eosinophils % (Auto) 0.2 % (0.0-4.3); Lymphocytes % (Auto) 20.7 % (13.4-35.0); Monocytes # (Auto) 0.4 K/mm3 (0.0-0.8); Monocytes % (Auto) 4.4 % (0.0-7.3)
--- NOTE | 2021-07-03 22:14 | Cat Scan Report ---
CT ABDOMEN AND PELVIS WITHOUT CONTRAST INDICATION / CLINICAL INFORMATION: LEFT sided flank pain that radiates to suprapubic region x 2 days. TECHNIQUE: Axial CT images were obtained through the abdomen and pelvis without IV contrast. All CT scans at this location are performed using CT dose reduction for ALARA by means of automated exposure control. COMPARISON: CT abdomen and pelvis 12/06/2019 FINDINGS: LOWER CHEST: No significant abnormality. LIVER: No significant abnormality. GALLBLADDER: No significant abnormality. BILE DUCTS: No significant abnormality. PANCREAS: No significant abnormality. SPLEEN: No significant abnormality. ADRENALS: No significant abnormality. RIGHT KIDNEY / URETER: No significant abnormality. LEFT KIDNEY / URETER: No significant abnormality. STOMACH / SMALL BOWEL: No significant abnormality. COLON: No significant abnormality. APPENDIX: Nonvisualized. PERITONEUM: No free fluid. No free air. No fluid collection. LYMPH NODES: No significant adenopathy. AORTA / ARTERIES: No significant abnormality. IVC / VEINS: No significant abnormality. URINARY BLADDER: No significant abnormality. REPRODUCTIVE ORGANS: No significant abnormality. ADDITIONAL FINDINGS: None. SKELETAL SYSTEM: No significant abnormality. IMPRESSION: 1. No acute abnormality. Signer Name: Partha Brown MD Signed: 07/03/2021 10:10 PM Workstation Name: [id number]
[2021-07-03] MEDS ORDERED: FLUCONAZOLE 200 MG TAB PO ONE (23:08)
[2021-07-03] MEDS ORDERED: levoFLOXacin 500 MG TAB PO ONE (23:08)
[2021-07-04 00:09] VITALS: BP 123/59
== END 2021-07-04 00:14 | disposition home or self-care (01) ==
LOC: ED 19:19
DX: N39.0 Urinary tract infection, site not specified (principal); F17.200 Nicotine dependence, unspecified, uncomplicated
CPT/HCPCS: 36415; 74176; 80053; 81001; 81025; 85025; 87086; 87186; 96361; 96374; 96375; 99284; J1885; J2405; J7030

== ENCOUNTER 2021-10-17 12:19 | Emergency (ER) | payer MEDICAID ==
[2021-10-17] MEDS ORDERED: ALUM-MAG HYDROXIDE-SIMETHICONE 200-200-20MG/5ML ORAL LIQD 30 ML PO ONE (12:42)
[2021-10-17] MEDS ORDERED: PANTOPRAZOLE 40 MG INJ IV ONE (12:43)
[2021-10-17] MEDS ORDERED: LIDOCAINE VISCOUS 2% 15 ML ORAL LIQD PO ONE ×2 (12:43→13:15)
[2021-10-17] MEDS ORDERED: SODIUM CHLORIDE 0.9% 1000 ML 1,000 ML IV ONE (12:43)
--- NOTE | 2021-10-17 12:46 | Emergency Department Report ---
HPI - General Chief Complaint: Alcohol Time Seen by Provider: 10/17/21 12:31 - HPI HPI: 36-year-old female with history of pancreatitis and peptic ulcer disease brought in by EMS complaining of cute onset of severe epigastric abdominal pain and nausea and vomiting after drinking approximately one half of a 750 mL bottle of rum early this morning. The patient was given 4 mg of Zofran in route. Patient states that she went out with friends last night and had a few drinks. She says after coming home from drinking with friends she continued to drink despite knowing that in the past this is caused her severe abdominal pain and pancreatitis. She says soon after drinking the ROM she developed severe burning pain in her epigastrium as well as nausea and vomiting. She says she is feels similar to what has happened to her in the past when she drinks alcohol. She denies any associated headache, fever, vision change, neck pain, chest pain, shortness of breath, cough, back pain, focal weakness, sensory changes, dysuria, or any other complaints. Her LMP was approximately 1 month ago. She is not vaccinated against COVID-19. ED Past Medical Hx - Past Medical History Hx Headaches / Migraines: Yes Additional medical history: Pancreatitis- ovarian cyst - Surgical History Additional Surgical History: x1 - Social History Smoking Status: Current Every Day Smoker Substance Use Type: None - Medications Home Medications: Home Medications Medication Instructions Recorded Confirmed Last Taken Type Acetaminophen/Codeine 1 tab PO Q6H PRN #14 tab 11/16/14 Unknown Rx [Acetaminophen-Codeine #3 TAB] Sulfamethoxazole/Trimethoprim 1 each PO BID #14 tablet 11/16/14 Unknown Rx [Bactrim Ds] Clindamycin [Clindamycin CAP] 450 mg PO Q8HR 7 Days capsule 05/10/17 Unknown Rx Ibuprofen [Motrin 600 MG tab] 600 mg PO Q8H PRN #30 tablet 05/10/17 Unknown Rx traMADoL [Ultram] 50 mg PO Q4HR PRN #12 tablet 05/10/17 Unknown Rx Albuterol Mdi (or & Nicu Only) 2 puff IH QID PRN #1 inhalation 03/22/18 Unknown Rx [ProAir HFA Inhaler] Azithromycin [Zithromax Z-BRANNON] 250 mg PO QDAY #6 tablet 03/22/18 Unknown Rx Benzonatate [Tessalon Perles] 100 mg PO Q8HR #20 capsule 03/22/18 Unknown Rx traMADoL [Ultram 50 MG tab] 50 mg PO Q6HR PRN #12 tablet 03/22/18 Unknown Rx Cyclobenzaprine [Flexeril] 10 mg PO QHS #20 tablet 04/25/19 Unknown Rx Ibuprofen [Motrin 800 MG tab] 800 mg PO Q8HR #30 tablet 04/25/19 Unknown Rx Butalb/Acetamin/Caff 50-325-40 1 - 2 tab PO Q6HR PRN #15 tab 02/16/20 Unknown Rx [Fioricet 50-325-40] Cyclobenzaprine HCl [Flexeril 5 MG 5 mg PO Q8H PRN #15 tab 02/16/20 Unknown Rx TAB] Ketorolac [Toradol] 10 mg PO Q8H PRN #20 tablet 02/16/20 Unknown Rx Ondansetron [Zofran Odt] 4 mg PO Q6HR PRN #20 tab.rapdis 02/16/20 Unknown Rx Esomeprazole Magnesium [NexIUM] 40 mg PO QDAY #30 capsule.dr 10/20/20 Unknown Rx Ondansetron [Zofran Odt] 4 mg PO Q8HR PRN #14 tab.rapdis 10/20/20 Unknown Rx traMADoL [Ultram 50 MG tab] 50 mg PO Q4HR PRN #14 tablet 10/20/20 Unknown Rx Ciprofloxacin HCl 500 mg PO BID 7 Days #14 tablet 07/03/21 Unknown Rx Ibuprofen [Motrin 800 MG tab] 800 mg PO Q8HR PRN #30 tablet 07/03/21 Unknown Rx ED Review of Systems ROS: Stated complaint: ALCOHOL Other details as noted in HPI Comment: All other systems reviewed and negative Constitutional: denies: chills, fever Eyes: denies: eye pain, vision change ENT: denies: throat pain, congestion Respiratory: denies: cough, shortness of breath Cardiovascular: denies: chest pain, palpitations Gastrointestinal: abdominal pain, nausea, vomiting. denies: diarrhea Genitourinary: denies: dysuria, frequency Musculoskeletal: denies: back pain, arthralgia Skin: denies: rash, lesions Neurological: denies: headache, weakness, numbness Hematological/Lymphatic: denies: easy bleeding Physical Exam - Physical Exam Vital Signs: Vital Signs 10/17/21 12:20 Temperature 98.7 F Pulse Rate 130 H Respiratory 20 Rate Blood Pressure 130/88 [Left] O2 Sat by Pulse 98 Oximetry Physical Exam: GENERAL: Thin young female in moderate distress secondary to pain. Sobbing and wailing. Smells of alcohol HEAD: Normocephalic. No obvious signs of trauma. ENT: Very dry mucous membranes. EYES: Extraocular movements are intact. Pupils are equal round and reactive to light bilaterally NECK: Supple. Full ROM is intact. Trachea is midline. LUNGS: Nonlabored breathing. Equal chest rise bilaterally. Clear to auscultation bilaterally. CARDIOVASCULAR: Tachycardic but with regular rhythm. No murmurs or rubs. VASCULAR: Cap refill < 2 seconds ABDOMEN: Abdomen is soft and nondistended. There is mild tenderness in the epigastrium without guarding or rebound tenderness. SKIN: Skin is warm and dry NEURO: Patient is awake, alert, and oriented. health sciences dean II-XII grossly intact. No focal deficits. Normal motor and sensory exam throughout. Normal speech. MUSCULOSKELETAL: No obvious deformities. No significant tenderness. Normal ROM throughout. BACK/SPINE: No midline tenderness or step-offs of the C/T/L spine. No costovertebral angle tenderness. ED Course Vital Signs 10/17/21 12:20 Temperature 98.7 F Pulse Rate 130 H Respiratory 20 Rate Blood Pressure 130/88 [Left] O2 Sat by Pulse 98 Oximetry ED Medical Decision Making - Lab Data Result diagrams: 10/17/21 13:04 10/17/21 13:04 - EKG Data -: EKG Interpreted by Or - EKG Data 10/17/21 13:36 Sinus arrhythmia. Left axis deviation. Otherwise normal intervals. No ectopy. No significant ST segment or T wave abnormalities. - Medical Decision Making 36-year-old female with history of pancreatitis and peptic ulcer disease brought in by EMS with acute onset epigastric abdominal pain and nausea/vomiting after binge drinking last night and early this morning including drinking one half of a 750 mL bottle of rum. On initial assessment, the patient is afebrile and with normal vital signs other than elevated heart rate. She is in moderate distress secondary to pain. She has very dry mucous membranes. She has a nonfocal neur ologic exam. Lungs are clear to auscultation. There is mild tenderness in the epigastrium without guarding or rebound tenderness. She has no CVA tenderness. Nonetheless we will perform broad work-up with a full set of labs and EKG. We will give 1 L of IV fluids, 80 mg of IV Protonix given her history of peptic ulcer disease as well as GI cocktail for her pain and reassess. On repeat reassessment 20 minutes after initial assessment, the patient is now resting comfortably in the bed. She reports feeling much better after receiving the GI cocktail and reports no pain or nausea at this time. Urinalysis reveals no evidence of infection and no bacteriuria. Labs reveal no significant leukocytosis or anemia. Kidney function is within normal limits and there are no significant electrolyte abnormalities. However, serum test is positive. I have ordered a quantitative hCG as well as transvaginal ultrasound to assess for evidence of IUP versus other pelvic abnormality to explain the patient's abdominal pain. I informed the patient about the positive test and she denies any pelvic complaints including pain, discharge, dysuria, or vaginal bleeding. The patient expressed understanding and agreement with the plan of care. I was called to the bedside because the patient became very agitated and angry when she was told not to drink water until the ultrasound is resulted. I went and spoke with her and she expressed that she wants to leave AGAINST MEDICAL ADVICE. I discussed with her the risks of leaving AGAINST MEDICAL ADVICE which include temporary/permanent disability and even and she still wants to leave AGAINST MEDICAL ADVICE. She is of sound mind and is ambulating with steady gait. She was encouraged to return at any time should she change her mind. Transvaginal ultrasound shows questionable intrauterine without definitive confirmation Critical care attestation.: If time is entered above; I have spent that time in minutes in the direct care of this critically ill patient, excluding procedure time. ED Disposition Clinical Impression: Peptic ulcer disease, Alcohol use disorder, Nausea & vomiting, Positive test Disposition: 07 LEFT AGAINST MEDICAL ADVICE Is pt being admited?: No Instructions: Abdominal Pain (ED) Referrals: PRIMARY CAREMD [Primary Care Provider] - 3-5 Days Forms: AMA Form
[2021-10-17 13:05] VITALS: BP 122/76
[2021-10-17] MEDS ORDERED: LIDOCAINE VISCOUS 2% 15 ML ORAL LIQD PO NR (13:15)
[2021-10-17] MEDS ORDERED: ALUM-MAG HYDROXIDE-SIMETHICONE 200-200-20MG/5ML ORAL LIQD 30 ML PO NR (14:00)
[2021-10-17 14:09] LABS: Basophils % (Auto) 0.4 % (0.0-1.8); Eosinophils % (Auto) 0.2 % (0.0-4.3); Hematocrit 42.3 % (30.3-42.9); Hemoglobin 13.6 gm/dl (10.1-14.3); Lymphocytes # (Auto) 2.1 K/mm3 (1.2-5.4); Lymphocytes % (Auto) 23.6 % (13.4-35.0); Mean Corpuscular HGB Conc 32 % (30-34); Mean Corpuscular Volume 92 fl (79-97); Monocytes # (Auto) 0.4 K/mm3 (0.0-0.8); Monocytes % (Auto) 4.6 % (0.0-7.3); Red Cell Distribution Width 18.4 % (13.2-15.2)
[2021-10-17 14:10] LABS: Platelet Count 166 K/mm3 (140-440)
[2021-10-17 15:07] LABS: Bilirubin,Urine NEG (Negative); Blood,Urine NEG (Negative); Color,Urine Yellow (Yellow); Mucus,Urine 1+ /HPF; Urobilinogen,Urine < 2.0 mg/dL (<2.0)
[2021-10-17 15:14] LABS: Amphetamine Screen,Urine Negative; Benzodiazepines Screen,Urine Negative; Methadone Screen,Urine Negative; Opiate Screen,Urine Negative
[2021-10-17 15:45] LABS: Cannabinoid Screen,Urine Positive; Cocaine Screen,Urine Positive
[2021-10-17 15:51] LABS: Alanine Aminotransferase 10 units/L (7-56); Albumin 4.7 g/dL (3.9-5); Blood Urea Nitrogen 10 mg/dL (7-17); Calcium 9.3 mg/dL (8.4-10.2); Hemolysis Index 29
[2021-10-17 15:58] LABS: BUN/Creatinine Ratio 17; Bilirubin,Direct < 0.2 mg/dL (0-0.2)
--- NOTE | 2021-10-17 16:30 | Ultrasound Report ---
ULTRASOUND OBSTETRIC INDICATION: Positive test. TECHNIQUE: Transabdominal. COMPARISON: None available. FINDINGS: GESTATIONAL SAC: A questionable intrauterine gestational sac measures 4.8 mm, consistent with an alok mated age of 5 weeks 2 days. YOLK SAC: None seen. EMBRYO/FETUS: None seen. ADNEXA: A right ovarian dominant follicle measures 1.7 cm. A left ovarian dominant follicle measures 1.5 cm. No other significant abnormality. FREE FLUID: None. ADDITIONAL FINDINGS: None. IMPRESSION: 1. Questionable early intrauterine gestational sac without visualization of a yolk sac or pole. 2. No sonographic evidence of ectopic . 3. Please correlate with beta hCG levels. Close clinical and imaging follow-up is recommended. Signer Name: Sha Rodríguez MD Signed: 10/17/2021 4:26 PM Workstation Name: [id number]
--- NOTE | 2021-10-22 08:18 | Electrocardiograph Report ---
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
== END 2021-10-17 16:29 | disposition left against medical advice (07) ==
LOC: ED 12:19
DX: K27.1 Acute peptic ulcer, site unspecified, with perforation (principal); F10.20 Alcohol dependence, uncomplicated; R11.2 Nausea with vomiting, unspecified; Z32.01 Encounter for pregnancy test, result positive
CPT/HCPCS: 36415; 76801; 80048; 80076; 80307; 81001; 83690; 83735; 84702; 84703; 85025; 93005; 96361; 96374; 99284; C9113; J7030; 80320; Q0162; G0480

== ENCOUNTER 2021-11-11 02:02 | Emergency (ER) | payer MEDICAID ==
[2021-11-11] MEDS ORDERED: SODIUM CHLORIDE 0.9% 1000 ML 1,000 ML IV ONE (02:31)
[2021-11-11 03:32] LABS: Basophils % (Auto) 0.2 % (0.0-1.8); Hematocrit 33.1 % (30.3-42.9); Hemoglobin 10.8 gm/dl (10.1-14.3); Lymphocytes # (Auto) 1.1 K/mm3 (1.2-5.4); Lymphocytes % (Auto) 7.5 % (13.4-35.0); Mean Corpuscular HGB Conc 33 % (30-34); Mean Corpuscular Volume 91 fl (79-97); Monocytes # (Auto) 0.6 K/mm3 (0.0-0.8); Platelet Count 277 K/mm3 (140-440); Red Blood Count 3.62 M/mm3 (3.65-5.03); Red Cell Distribution Width 17.5 % (13.2-15.2)
[2021-11-11 03:42] LABS: Blood Urea Nitrogen 8 mg/dL (7-17); Calcium 8.7 mg/dL (8.4-10.2); Hemolysis Index 6
[2021-11-11 03:43] LABS: BUN/Creatinine Ratio 16
[2021-11-11] MEDS ORDERED: ONDANSETRON 4 MG/2 ML INJ IV ONE ×3 (03:51→08:25)
[2021-11-11] MEDS ORDERED: MORPHINE 4 MG/1 ML INJ IV ONE (04:01)
--- NOTE | 2021-11-11 05:01 | Emergency Department Report ---
<LOUANN RIVERA - Last Filed: 11/11/21 09:58> ED Female HPI - General Chief complaint: Vaginal Bleeding Stated complaint: VAGINAL BLEEDING, 8WKS Time Seen by Provider: 11/11/21 02:31 - Related Data Previous Rx's Medication Instructions Recorded Last Taken Type Esomeprazole Magnesium [NexIUM] 40 mg PO QDAY #30 capsule. 10/20/20 Unknown Rx Ondansetron [Zofran Odt] 4 mg PO Q8HR PRN #14 tab.rapdis 10/20/20 Unknown Rx traMADoL [Ultram 50 MG tab] 50 mg PO Q4HR PRN #14 tablet 10/20/20 Unknown Rx Misoprostol [Cytotec] 200 mcg PO Q6H #4 11/11/21 Unknown Rx oxyCODONE /ACETAMINOPHEN [Percocet 1 - 2 tab PO Q6HR PRN #14 tablet 11/11/21 11/12/21 04:00 Rx 5/325] Ondansetron [Zofran ODT TAB] 8 mg PO Q8HR #20 tab.rapdis 11/12/21 Unknown Rx Allergies Allergy/AdvReac Type Severity Reaction Status Date / Time promethazine [From Phenergan] AdvReac Nausea Verified 11/12/21 07:36 ED Past Medical Hx - Medications Home Medications: Home Medications Medication Instructions Recorded Confirmed Last Taken Type Esomeprazole Magnesium [NexIUM] 40 mg PO QDAY #30 capsule. 10/20/20 Unknown Rx Ondansetron [Zofran Odt] 4 mg PO Q8HR PRN #14 tab.rapdis 10/20/20 Unknown Rx traMADoL [Ultram 50 MG tab] 50 mg PO Q4HR PRN #14 tablet 10/20/20 Unknown Rx Misoprostol [Cytotec] 200 mcg PO Q6H #4 11/11/21 Unknown Rx oxyCODONE /ACETAMINOPHEN [Percocet 1 - 2 tab PO Q6HR PRN #14 tablet 11/11/21 11/12/21 04:00 Rx 5/325] Ondansetron [Zofran ODT TAB] 8 mg PO Q8HR #20 tab.rapdis 11/12/21 Unknown Rx ED Course - Consultations Consultation #1: 11/11/21 09:24 Case discussed with [employer] Dr. Oneal-would not perform D&C without active bleeding or hemodynamic instability. Recommends Cytotec and/or expectant management with pain medication. If Cytotec give 200 mcg in ED and then pr escription for every 6 hours x4 doses ED Medical Decision Making - Lab Data Result diagrams: 11/11/21 03:08 11/11/21 03:08 - Radiology Data Radiology results: report reviewed (Pelvic ultrasound), image reviewed (Pelvic ultrasound) [facility] [address] [place] [address] Ultrasound Report Signed Patient: ANDREW REESE MR #: [id number] : 1985 Acct:[id number] Age/Sex: 36 / F ADM Date: 11/11/21 Loc: ED Attending Dr: Ordering Physician: ERIC RIVERA MD Date of Service: 11/11/21 Procedure(s): US OB <= 14 weeks fetus Accession Number(s): [id number] cc: ERIC RIVERA MD OB ultrasound INDICATION: Vaginal bleeding FINDINGS: Single intrauterine . Yolk sac and pole are identified. Right ovary appears normal with cyst measuring 1.6 x 1.5 x 1.3 cm. There is a subchorionic hemorrhage measuring 3.1 x 0.6 x 4.9 cm. No heart rate at this time. Uterus measures 9.1 x 7.1 x 8.1 cm. By crown- rump length ultrasound age is 8 weeks 0 days IMPRESSION: 1. Ultrasound age 8 weeks 0 days however no heart rate is identified concerning for demise. Clinical correlation and follow- up. 2. Subchorionic bleed measuring 3.1 x 0.6 x 4.9 cm Signer Name: Rickey Vega MD Signed: 11/11/2021 8:13 AM Workstation Name: [id number] Transcribed By: CW Dictated By: ETHEL VEGA MD Electronically Authenticated By: ETHEL VEGA MD Signed Date/Time: 11/11/21812 DD/ 0 TD/TT: Print Cancel ED Disposition Clinical Impression: demise Disposition: 01 HOME / SELF CARE / HOMELESS Is pt being admited?: No Does the pt Need Aspirin: No Condition: Stable Instructions: Demise Additional Instructions: Return to the emergency department should you develop worsening symptoms, inability to tolerate food or liquids, high fever or any other concerns Prescriptions: Misoprostol [Cytotec] 200 mcg PO Q6H #4 oxyCODONE /ACETAMINOPHEN [Percocet 5/325] 1 - 2 tab PO Q6HR PRN #14 tablet PRN Reason: Pain Referrals: SARINA PUENTE MD [Primary Care Provider] - 3-5 Days [facility] [Provider Group] - 2-3 Days Time of Disposition: 09:57 <ERIC RIVERA - Last Filed: 11/13/21 15:37> ED Female HPI - General Source: patient, EMS Mode of arrival: Stretcher Limitations: No Limitations - History of Present Illness Initial comments: VAGINAL BLEEDING X 1HOUR. PT REPORTS BEING 8 WKS Complaint: vaginal bleeding -: Gradual, hour(s) Severity scale (0 -10): 2 Quality: cramping Consistency: intermittent Improves with: none Worsens with: none ED Review of Systems ROS: Stated complaint: VAGINAL BLEEDING, 8WKS Other details as noted in HPI Constitutional: denies: chills, fever Eyes: denies: eye pain, eye discharge, vision change ENT: denies: ear pain, throat pain Respiratory: denies: cough, shortness of breath, wheezing Cardiovascular: denies: chest pain, palpitations Endocrine: no symptoms reported Gastrointestinal: denies: abdominal pain, nausea, diarrhea Genitourinary: denies: urgency, dysuria, discharge Musculoskeletal: denies: back pain, joint swelling, arthralgia Skin: denies: rash, lesions Neurological: denies: headache, weakness, paresthesias Psychiatric: denies: anxiety, depression Hematological/Lymphatic: denies: easy bleeding, easy bruising ED Past Medical Hx - Past Medical History Previous Medical History?: No Hx Hypertension: No Hx Headaches / Migraines: Yes Additional medical history: Pancreatitis- ovarian cyst - Surgical History Additional Surgical History: x1 - Social History Smoking Status: Current Every Day Smoker Substance Use Type: None ED Physical Exam - General Limitations: No Limitations General appearance: alert, in no apparent distress - Head Head exam: Present: atraumatic, normocephalic - Eye Eye exam: Present: normal appearance - ENT ENT exam: Present: mucous membranes moist - Neck Neck exam: Present: normal inspection - Respiratory Respiratory exam: Present: normal lung sounds bilaterally. Absent: respiratory distress - Cardiovascular Cardiovascular Exam: Present: regular rate, normal rhythm. Absent: systolic murmur, diastolic murmur, rubs, gallop - GI/Abdominal GI/Abdominal exam: Present: soft, normal bowel sounds - External exam: Present: normal external exam, bleeding Speculum exam: Present: normal speculum exam, erythema, vaginal bleeding (no acive bleeding) - Extremities Exam Extremities exam: Present: normal inspection - Back Exam Back exam: Present: normal inspection - Neurological Exam Neurological exam: Present: alert, oriented X3 - Psychiatric Psychiatric exam: Present: normal affect, normal mood - Skin Skin exam: Present: warm, dry, intact, normal color. Absent: rash ED Course Vital Signs 11/11/21 11/11/21 11/11/21 02:21 08:39 10:58 Temperature 98.1 F Pulse Rate 60 88 Respiratory 16 25 H Rate Blood Pressure 164/68 [Left] O2 Sat by Pulse 100 Oximetry 11/11/21 11:00 Temperature Pulse Rate 86 Respiratory 18 Rate Blood Pressure 142/86 [Left] O2 Sat by Pulse 100 Oximetry - Reevaluation(s) Reevaluation #1: 11/11/21 05:01 stable H.H , no active bleeding 11/13/21 15:37 US showed 8 weeks IUFD left for doctor Merle for dispo at 6 10 am ED Medical Decision Making - Lab Data Result diagrams: 11/11/21 03:08 11/11/21 03:08 Critical care attestation.: If time is entered above; I have spent that time in minutes in the direct care of this critically ill patient, excluding procedure time.
[2021-11-11 06:08] LABS: INR 1.08 (0.87-1.13)
[2021-11-11] MEDS ORDERED: ACETAMINOPHEN 500 MG TAB PO ONE (06:48)
--- NOTE | 2021-11-11 08:18 | Ultrasound Report ---
OB ultrasound INDICATION: Vaginal bleeding FINDINGS: Single intrauterine . Yolk sac and pole are identified. Right ovary appears normal with cyst measuring 1.6 x 1.5 x 1.3 cm. There is a subchorionic hemorrhage measuring 3.1 x 0.6 x 4.9 cm. No heart rate at this time. Uterus measures 9.1 x 7.1 x 8.1 cm. By crown-rump length ultrasound age is 8 weeks 0 days IMPRESSION: 1. Ultrasound age 8 weeks 0 days however no heart rate is identified concerning for demis e. Clinical correlation and follow-up. 2. Subchorionic bleed measuring 3.1 x 0.6 x 4.9 cm Signer Name: Rickey Vega MD Signed: 11/11/2021 8:13 AM Workstation Name: [id number]
[2021-11-11] MEDS ORDERED: HYDROmorphone 1 MG/1 ML INJ IV ONE (08:25)
[2021-11-11 08:36] LABS: Bilirubin,Urine NEG (Negative); Blood,Urine LG (Negative); Color,Urine Yellow (Yellow); Urobilinogen,Urine < 2.0 mg/dL (<2.0)
[2021-11-11 08:43] LABS: RBC,Urine < 1.0 /HPF (0.0-6.0)
[2021-11-11 08:46] LABS: HCG Qualitative,Urine Positive (Negative)
[2021-11-11] MEDS ORDERED: miSOPROStol 200 MCG TAB PO ONE (11:00)
[2021-11-11 11:01] VITALS: BP 142/86
== END 2021-11-11 11:01 | disposition home or self-care (01) ==
LOC: ED 02:02
DX: O36.4XX0 Maternal care for intrauterine death, not applicable or unspecified (principal); Z3A.08 8 weeks gestation of pregnancy; G43.909 Migraine, unspecified, not intractable, without status migrainosus; F17.200 Nicotine dependence, unspecified, uncomplicated; Z79.899 Other long term (current) drug therapy; Z98.890 Other specified postprocedural states
CPT/HCPCS: 36415; 76801; 80048; 81001; 81025; 84702; 85025; 85610; 86900; 86901; 96361; 96374; 96375; 96376; 99285; J1170; J2270; J2405; J7030; Q0162

== ENCOUNTER 2021-11-12 07:31 | Emergency (ER) | payer MEDICAID ==
[2021-11-12] MEDS ORDERED: diphenhydrAMINE 50 MG/ML VIAL IV ONE (07:41)
[2021-11-12] MEDS ORDERED: ONDANSETRON 4 MG/2 ML INJ IV ONE (07:41)
[2021-11-12] MEDS ORDERED: FAMOTIDINE 20 MG/2 ML INJ IV ONE (07:41)
[2021-11-12] MEDS ORDERED: fentaNYL 100 MCG/2 ML INJ IV ONE (07:41)
--- NOTE | 2021-11-12 07:49 | Emergency Department Report ---
HPI - General Chief Complaint: Abdominal Pain Time Seen by Provider: 11/12/21 07:38 - HPI HPI: Room 24 The patient is a 36-year-old female presenting with a chief complaint of nausea vomiting. The patient was discharged yesterday by myself after presenting to the overnight ED physician for vaginal bleeding/ demise. Patient was discharged with Cytotec and Percocet. The patient states this morning at 05: 00 she took the Percocet without eating food and she shortly afterwards developed nausea and vomiting. Patient presents to the emergency department for control of nausea vomiting ED Past Medical Hx - Past Medical History Hx Hypertension: No Hx Headaches / Migraines: Yes Additional medical history: Pancreatitis- ovarian cyst - Surgical History Additional Surgical History: x1 - Family History Family history: no significant - Social History Smoking Status: Current Every Day Smoker Substance Use Type: None - Medications Home Medications: Home Medications Medication Instructions Recorded Confirmed Last Taken Type Esomeprazole Magnesium [NexIUM] 40 mg PO QDAY #30 capsule. 10/20/20 Unknown Rx Ondansetron [Zofran Odt] 4 mg PO Q8HR PRN #14 tab.rapdis 10/20/20 Unknown Rx traMADoL [Ultram 50 MG tab] 50 mg PO Q4HR PRN #14 tablet 10/20/20 Unknown Rx Misoprostol [Cytotec] 200 mcg PO Q6H #4 11/11/21 Unknown Rx oxyCODONE /ACETAMINOPHEN [Percocet 1 - 2 tab PO Q6HR PRN #14 tablet 11/11/21 11/12/21 04:00 Rx 5/325] Ondansetron [Zofran ODT TAB] 8 mg PO Q8HR #20 tab.rapdis 11/12/21 Unknown Rx ED Review of Systems ROS: Stated complaint: ABD PAIN Other details as noted in HPI Constitutional: no symptoms reported Eyes: denies: eye pain ENT: denies: throat pain Respiratory: no symptoms reported Cardiovascular: denies: chest pain Endocrine: no symptoms reported Gastrointestinal: abdominal pain, nausea, vomiting Genitourinary: denies: dysuria Musculoskeletal: denies: back pain Neurological: denies: headache Physical Exam - Physical Exam Vital Signs: Vital Signs 11/12/21 07:32 Temperature 97.4 F L Pulse Rate 71 Respiratory 20 Rate Blood Pressure 144/86 [Left] O2 Sat by Pulse 100 Oximetry Physical Exam: GENERAL: The patient is well-developed well-nourished female sitting on edge of stretcher spitting into trash can, tearful HEENT: Normocephalic. Atraumatic. Extraocular motions are intact. Patient has moist mucous membranes. NECK: Supple. Trachea midline CHEST/LUNGS: Clear to auscultation. There is no respiratory distress noted. HEART/CARDIOVASCULAR: Regular. There is no tachycardia. There is no gallop rub or murmur. ABDOMEN: Abdomen is soft, nontender. Patient has normal bowel sounds. There is no abdominal distention. SKIN: There is no rash. There is no edema. There is no diaphoresis. NEURO: The patient is awake, alert, and oriented. The patient is cooperative. The patient has no focal neurologic deficits. The patient has normal speech. GCS 15 MUSCULOSKELETAL:There is no evidence of acute injury. ED Course Vital Signs 11/12/21 07:32 Temperature 97.4 F L Pulse Rate 71 Respiratory 20 Rate Blood Pressure 144/86 [Left] O2 Sat by Pulse 100 Oximetry ED Medical Decision Making - Lab Data Result diagrams: 11/12/21 08:01 11/12/21 09:24 Laboratory Tests 11/12/21 11/12/21 11/12/21 08:01 08:01 09:24 WBC 11.5 H RBC 3.64 L Hgb 11.2 Hct 33.3 MCV 92 MCH 31 MCHC 34 RDW 17.1 H Plt Count 112 L Lymph % (Auto) 22.2 [place] % (Auto) 3.6 Eos % (Auto) 0.4 Baso % (Auto) 0.4 Lymph # (Auto) 2.6 [place] # (Auto) 0.4 Eos # (Auto) 0.0 Baso # (Auto) 0.0 Seg Neutrophils % 73.4 H Seg Neutrophils # 8.5 H Sodium 135 L D Potassium 2.9 L* D Chloride 102.0 Carbon Dioxide 19 L Anion Gap 17 BUN 8 Creatinine 0.5 L Estimated GFR > 60 BUN/Creatinine Ratio 16 Glucose 100 Calcium 8.5 HCG, Quant 46381 H - Differential Diagnosis GI upset Critical care attestation.: If time is entered above; I have spent that time in minutes in the direct care of this critically ill patient, excluding procedure time. ED Disposition Clinical Impression: demise, Nausea & vomiting Disposition: 01 HOME / SELF CARE / HOMELESS Is pt being admited?: No Does the pt Need Aspirin: No Condition: Stable Instructions: Abdominal Pain (ED) Additional Instructions: Return to the emergency department should you develop worsening symptoms, inability to tolerate food or liquids, high fever or any other concerns Prescriptions: Ondansetron [Zofran ODT TAB] 8 mg PO Q8HR #20 tab.rapdis Referrals: PRIMARY CAREMD [Primary Care Provider] - 3-5 Days EDVIN CUNHA MD [Staff Physician] - 3-5 Days Time of Disposition: 11:09
[2021-11-12 08:20] LABS: Basophils % (Auto) 0.4 % (0.0-1.8); Eosinophils % (Auto) 0.4 % (0.0-4.3); Hematocrit 33.3 % (30.3-42.9); Hemoglobin 11.2 gm/dl (10.1-14.3); Lymphocytes # (Auto) 2.6 K/mm3 (1.2-5.4); Lymphocytes % (Auto) 22.2 % (13.4-35.0); Mean Corpuscular HGB Conc 34 % (30-34); Mean Corpuscular Volume 92 fl (79-97); Monocytes # (Auto) 0.4 K/mm3 (0.0-0.8); Monocytes % (Auto) 3.6 % (0.0-7.3); Red Blood Count 3.64 M/mm3 (3.65-5.03); Red Cell Distribution Width 17.1 % (13.2-15.2)
[2021-11-12 08:52] LABS: Platelet Count 112 K/mm3 (140-440)
[2021-11-12 09:52] LABS: Blood Urea Nitrogen 8 mg/dL (7-17); Calcium 8.5 mg/dL (8.4-10.2); Hemolysis Index 22
[2021-11-12] MEDS ORDERED: POTASSIUM CHLORIDE ER 20 MEQ TAB PO ONE (10:01)
[2021-11-12 10:44] LABS: BUN/Creatinine Ratio 16
[2021-11-12 12:02] VITALS: BP 116/79
== END 2021-11-12 12:05 | disposition home or self-care (01) ==
LOC: ED 07:31
DX: O36.4XX0 Maternal care for intrauterine death, not applicable or unspecified (principal); Z3A.00 Weeks of gestation of pregnancy not specified; I10 Essential (primary) hypertension; G43.909 Migraine, unspecified, not intractable, without status migrainosus; F17.200 Nicotine dependence, unspecified, uncomplicated; Z98.890 Other specified postprocedural states; O21.9 Vomiting of pregnancy, unspecified
CPT/HCPCS: 36415; 80048; 84702; 85025; 96374; 96375; 99284; J1200; J2405; J3010; J3490

== ENCOUNTER 2022-06-01 20:15 | Emergency (ER) | payer MEDICAID ==
[2022-06-01 20:21] VITALS: BP 120/81
[2022-06-01 20:32] LABS: Hematocrit 34.2 % (30.3-42.9); Hemoglobin 10.9 gm/dl (10.1-14.3); Mean Corpuscular HGB Conc 32 % (30-34); Mean Corpuscular Volume 84 fl (79-97); Platelet Count 292 K/mm3 (140-440); Red Blood Count 4.08 M/mm3 (3.65-5.03); Red Cell Distribution Width 18.3 % (13.2-15.2)
[2022-06-01 20:45] LABS: Blood Urea Nitrogen 7 mg/dL (7-17); Calcium 8.8 mg/dL (8.4-10.2); Hemolysis Index 5
--- NOTE | 2022-06-01 21:09 | Cat Scan Report ---
CT HEAD WITHOUT CONTRAST INDICATION / CLINICAL INFORMATION: QUINTANILLA, BLURRED VISION. TECHNIQUE: All CT scans at this location are performed using CT dose reduction for ALARA by means of automated e xposure control. COMPARISON: 02/16/2020 FINDINGS: HEMORRHAGE: No evidence of intracranial hemorrhage or extra-axial fluid collection. EXTRA-AXIAL SPACES: Cortical sulci, sylvian fissures and basilar cisterns have an unremarkable appear ance. VENTRICULAR SYSTEM: The third and lateral ventricles are of normal size and configuration. CEREBRAL PARENCHYMA: No areas of abnormal brain parenchymal attenuation are identified. There is no i ndication of recent infarction. MIDLINE SHIFT OR HERNIATION: There is no mass effect. CEREBELLUM / BRAINSTEM: Brainstem and cerebellum have an unremarkable appearance. MIDLINE STRUCTURES:No abnormalities of the pituitary gland or pineal region are identified. INTRACRANIAL VESSELS:No abnormalities are identified on this noncontrast head CT. ORBITS: visualized portions of the orbits have an unremarkable appearance. SOFT TISSUES of HEAD: No significant abnormality. CALVARIUM: Evaluation of bone windows reveals no abnormalities. PARANASAL SINUSES / MASTOID AIR CELLS: Visualized portions of the paranasal sinuses are free from inf lammatory mucosal disease. Mastoid air cells are normally pneumatized. ADDITIONAL FINDINGS: None. IMPRESSION: 1. Normal head CT without contrast. No interval change in comparison to prior study 02/16/2020. Signer Name: Jacques Millan MD Signed: 06/01/2022 9:05 PM Workstation Name: [id number]
[2022-06-01 21:11] LABS: BUN/Creatinine Ratio 10
[2022-06-01 21:12] LABS: INR 0.88 (0.87-1.13)
[2022-06-01 21:13] LABS: Partial Thromboplastin Time 26.1 Sec. (24.2-36.6)
[2022-06-01 21:22] LABS: Total Cells Counted 100
[2022-06-01 21:24] LABS: Hypochromasia Few; Platelet Estimate Consistent w Auto
== END 2022-06-02 17:41 | disposition left against medical advice (07) ==
LOC: ED 20:15
DX: R53.1 Weakness (principal); Z53.21 Procedure and treatment not carried out due to patient leaving prior to being seen by health care provider
CPT/HCPCS: 36415; 70450; 80048; 84484; 85007; 85025; 85610; 85670; 85730